=== PATIENT | male | born 1985 | race African-American/Black ===

== ENCOUNTER 2016-11-18 16:04 | Emergency (ER) | payer OTHER ==
[~2016-11-18] VITALS: Ht 165.1 cm; Wt 94.5 kg
[2016-11-18 16:08] VITALS: TEMP 37.6; Ht 165.1 cm; Wt 94.5 kg
[2016-11-18] MEDS ORDERED: ONDANSETRON INJ 2 MG/ML 2 ML VIAL IV STA (16:32)
[2016-11-18] MEDS ORDERED: MoRPHine SULFATE 4 MG/ML 1 ML CARP\\VIAL IV STA (16:32)
[2016-11-18] MEDS ORDERED: KETOROLAC TROMETHAMINE 30 MG/ML VIAL IV STA (16:32)
[2016-11-18] MEDS ORDERED: SODIUM CHLORIDE 0.9% 1000ML 2,000 ML IV STA (16:32)
--- NOTE | 2016-11-18 16:38 | EMERGENCY ROOM VISIT NOTE ---
History Report prepared by Katarinaibsharmila: Pricila Hawkins Under the Supervision of: Dr. Leslee Martinez M.D. First contact with patient: 16:24 Chief Complaint: FLU LIKE SX Stated Complaint: FEVER, COLD AND FLU SYMPTOMS History of Present Illness The patient is a 31 year old male who presents to the Emergency Room with complaints of worsening flu like symptoms that started last night. He complains of a fever, body aches, the chills, some chest discomfort and congestion. He has tried taking Tylenol, but states "it didn't work". He denies any cough or urinary symptoms. He admits to some nausea, but has not vomited or experienced diarrhea. He denies any chronic medical problems. He denies any recent sick contacts. The patient is originally from [facility] and states he is up to date on his vaccinations. Source of History: patient Onset: last night Position: other (global) Timing: worsening Modifying Factors (Relieving): tylenol Associated Symptoms: + chest pain, + chills, + fevers, + nausea, No diarrhea , No urinary symptoms, No vomiting Review of Systems See HPI for pertinent positives & negatives. A total of 10 systems reviewed and were otherwise negative. Past Medical & Surgical Medical Problems: (1) No known health problems Family History No significant family history Social History Smoking Status: Never Smoker Alcohol Use: none Drug Use: none Marital Status: Housing Status: lives with family Occupation Status: employed Current/Historical Medications Scheduled Amoxicillin (Amoxil), 500 MG PO TID Allergies Coded Allergies: No Known Allergies (Unverified , 11/18/16) Physical Exam Vital Signs Date Time Temp Pulse Resp B/P Pulse Ox O2 Delivery O2 Flow Rate FiO2 11/18/16 21:07 107 18 117/67 97 11/18/16 20:06 115 18 109/56 93 Room Air 11/18/16 18:26 119 16 130/67 96 Room Air 11/18/16 17:17 120 11/18/16 16:08 37.6 123 20 139/85 96 Room Air Physical Exam Vital signs reviewed. General: Well-appearing 31 year old male, in no significant distress. HEENT: No scleral icterus, PERRLA, neck supple. Atraumatic. TM's are clear bilaterally. Faint exudates to the bilateral tonsils. Cardiovascular: Regular rate and rhythm, no extra sounds. Pulmonary: Clear to auscultation bilaterally, normal work of breathing. Abdomen: Soft, nontender, nondistended, positive bowel sounds. Musculoskeletal: Atraumatic, no peripheral edema. Neurologic: Patient awake alert and oriented x 3, full strength in all 4 extremities. Cranial nerves 2 through 12 grossly intact. No meningeal signs. Skin: Warm to touch, dry, no rash Medical Decision & Procedures ER Provider Diagnostic Interpretation: This X-Ray was reviewed and interpreted by myself and the radiologist. CHEST ONE VIEW PORTABLE IMPRESSION: Negative chest. Electronically signed by: Eddie Salinas M.D. 11/18/2016 4:55 PM This Ultrasound was reviewed and interpreted by the radiologist and reviewed by myself. Right upper quadrant ultrasound GALLBLADDER-ABD LIMITED IMPRESSION: Normal study Electronically signed by: Eddie Salinas M.D. 11/18/2016 7:[address] scan was reviewed and interpreted by the radiologist and reviewed by myself. ABDOMEN AND PELVIS CT WITH IV CONTRAST IMPRESSION: No significant abnormality identified within the abdomen or pelvis. Electronically signed by: Eddie Salinas M.D. 11/18/2016 8:02 PM Laboratory Results 11/18/16 17:00 Red Blood Count 4.38, Mean Corpuscular Volume 89.7, Mean Corpuscular Hemoglobin 34.0, Mean Corpuscular Hemoglobin Concent 37.9, Mean Platelet Volume 11.4, Neutrophils (%) (Auto) 85.0, Lymphocytes (%) (Auto) 8.2, Monocytes (%) (Auto) 6.4, Eosinophils (%) (Auto) 0.0, Basophils (%) (Auto) 0.1, Neutrophils # (Auto) 17.13, Lymphocytes # (Auto) 1.65, Monocytes # (Auto) 1.28, Eosinophils # (Auto) 0.01, Basophils # (Auto) 0.02 11/18/16 17:00 Test 11/18/16 17:00 11/18/16 17:13 11/18/16 18:39 White Blood Count 20.15 K/uL (4.8-10.8) Red Blood Count 4.38 M/uL (4.7-6.1) Hemoglobin 14.9 g/dL (14.0-18.0) Hematocrit 39.3 % (42-52) Mean Corpuscular Volume 89.7 fL (80-100) Mean Corpuscular Hemoglobin 34.0 pg (25-34) Mean Corpuscular Hemoglobin Concent 37.9 g/dl (32-36) Platelet Count 152 K/uL (130-400) Mean Platelet Volume 11.4 fL (7.4-10.4) Neutrophils (%) (Auto) 85.0 % Lymphocytes (%) (Auto) 8.2 % Monocytes (%) (Auto) 6.4 % Eosinophils (%) (Auto) 0.0 % Basophils (%) (Auto) 0.1 % Neutrophils # (Auto) 17.13 K/uL (1.4-6.5) Lymphocytes # (Auto) 1.65 K/uL (1.2-3.4) Monocytes # (Auto) 1.28 K/uL (0.11-0.59) Eosinophils # (Auto) 0.01 K/uL (0-0.5) Basophils # (Auto) 0.02 K/uL (0-0.2) RDW Standard Deviation 39.2 fL (36.4-46.3) RDW Coefficient of Variation 12.1 % (11.5-14.5) Immature Granulocyte % (Auto) 0.3 % Immature Granulocyte # (Auto) 0.06 K/uL (0.00-0.02) Anion Gap 11.0 mmol/L (3-11) Est Creatinine Clear Calc Drug Dose 101.9 ml/min Estimated GFR () 102.4 Estimated GFR (Non- 88.4 BUN/Creatinine Ratio 13.2 (10-20) Calcium Level 8.5 mg/dl (8.5-10.1) Magnesium Level 1.8 mg/dl (1.8-2.4) Total Bilirubin 4.1 mg/dl (0.2-1) Direct Bilirubin 0.3 mg/dl (0-0.2) Aspartate Amino Transf (AST/SGOT) 17 U/L (15-37) Alanine Aminotransferase (ALT/SGPT) 21 U/L (12-78) Alkaline Phosphatase 63 U/L (45-117) Total Protein 7.5 gm/dl (6.4-8.2) Albumin 3.7 gm/dl (3.4-5.0) Amylase Level 42 U/L (25-115) Lipase 73 U/L (73-393) Influenza Type A (RT-PCR) Neg for Influ A (NEG) Influenza Type B (RT-PCR) Neg for Influ B (NEG) Bedside Lactic Acid Venous 0.67 mmol/L (0.90-1.70) Laboratory results per my review. Medications Administered Medications (Trade) Dose Ordered Sig/Danny Route Start Time Stop Time Status Last Admin Dose Admin Sodium Chloride (Nss 1000ml) 2,000 ml @ 999 mls/hr Q2H1M STAT IV 11/18/16 16:32 11/18/16 18:32 DC 11/18/16 17:06 999 MLS/HR Ketorolac Tromethamine (Toradol Inj) 30 mg NOW STAT IV 11/18/16 16:32 11/18/16 16:35 DC 11/18/16 17:06 30 MG Morphine Sulfate (MoRPHine SULFATE INJ) 4 mg NOW STAT IV 11/18/16 16:32 11/18/16 16:35 DC 11/18/16 17:07 4 MG Ondansetron HCl (Zofran Inj) 4 mg NOW STAT IV 11/18/16 16:32 11/18/16 16:35 DC 11/18/16 17:06 4 MG Ceftriaxone Sodium (Rocephin Inj) 1 gm NOW STAT IV 11/18/16 18:05 11/18/16 18:09 DC 11/18/16 18:33 1 GM ED Course 1631: Past medical records reviewed. The patient was evaluated in room B11. A complete history and physical examination was performed. 1632: Zofran 4 mg IV, Morphine Sulfate 4 mg IV, Toradol 30 mg IV, NSS 2000 ml @ 999 mls/hr IV. 1805: Rocephin 1 gm IV. 1810: I reevaluated the patient. He was asleep but states his abdomen is a little tender to palpation. 2030: I reevaluated the patient. He is feeling better. I discussed his results and discharge instructions and he verbalized complete understanding and agreement. Medical Decision Differential diagnosis: Influenza, other viral illness, pneumonia, urinary tract infection, metabolic abnormality, medication effect, cellulitis, meningitis, intra-abdominal source and strep pharyngitis. This patient was evaluated and appeared to be in no significant distress. He is found to be febrile and tachycardic. The patient was medicated with IV Toradol, IV morphine and IV Zofran. The patient was hydrated with normal saline solution. Patient is complaining of a sore throat and there are faint exudate on the posterior oropharynx. Strep swab was obtained and is negative. Blood swab is negative. Patient is found have a leukocytosis of 20,000 and an elevated bilirubin of 4. Ultrasound of right upper quadrant was performed and is negative. Subsequent CT scan of the abdomen and pelvis was performed and is also unrevealing. Blood cultures were obtained and a lactate is normal. Patient was given IV ceftriaxone 1 g. Given his complaints of fever and sore throat, and is possibly he is suffering from a bacterial pharyngitis. Patient was placed on amoxicillin 500 mg 3 times daily for 7 days. He'll follow-up with his physician for reevaluation return to the ED for worsening of symptoms or any medical concerns. Impression Primary Impression: Fever Additional Impressions: Leukocytosis Pharyngitis, acute Scribe Attestation The scribe's documentation has been prepared under my direction and personally reviewed by me in its entirety. I confirm that the note above accurately reflects all work, treatment, procedures, and medical decision making performed by me. Departure Information Dispostion Home / Self-Care Prescriptions Amoxicillin (AMOXIL) 500 Mg Cap 500 MG PO TID, #21 CAP Prov: Leslee Martinez M.D. 11/18/16 Referrals No Doctor, Assigned (PCP) Patient Instructions My [facility] Additional Instructions Diagnosis: Fever, pharyngitis Amoxicillin 500 mg three times daily for 7 days. Drink plenty of fluids. Tylenol 650 mg every 6 hours as needed for pain, fever. Ibuprofen 600 mg every 6 hours as needed for pain, fever. Follow up with your doctor this week for reevaluation. Return to the ED for worsening of symptoms or any medical concerns. Problem Qualifiers Primary Impression: Fever Encounter type: initial encounter Additional Impressions: Leukocytosis Leukocytosis type: unspecified Qualified Codes: D72.829 - Elevated white blood cell count, unspecified Pharyngitis, acute Pharyngitis/tonsillitis etiology: unspecified etiology Qualified Codes: J02.9 - Acute pharyngitis, unspecified
--- NOTE | 2016-11-18 16:57 | DIAGNOSTIC IMAGING REPORT ---
CHEST ONE VIEW PORTABLE CLINICAL HISTORY: cough, fever COMPARISON STUDY: No previous studies for comparison. FINDINGS: The bones soft tissues and hemidiaphragms are normal. The cardiomediastinal silhouette is normal. The lungs are clear. The pulmonary vasculature is normal. IMPRESSION: Negative chest. Electronically signed by: Eddie Salinas M.D. 11/18/2016 4:55 PM Dictated Date/Time: 11/18/2016 4:55 PM
[2016-11-18 17:09] LABS: BASO % 0.1 %; BASO ABS # 0.02 K/uL (0-0.2); COMPLETE YES; HEMATOCRIT 39.3 % (42-52); IG% 0.3 %; LYMPH % 8.2 %; LYMPH ABS # 1.65 K/uL (1.2-3.4); MEAN CELL VOLUME 89.7 fL (80-100); MEAN CORPUSCULAR HGB CONC 37.9 g/dl (32-36); MEAN PLATELET VOLUME 11.4 fL (7.4-10.4); MONO % 6.4 %; PLATELET COUNT 152 K/uL (130-400); RED BLOOD COUNT 4.38 M/uL (4.7-6.1); WHITE BLOOD COUNT 20.15 K/uL (4.8-10.8)
[2016-11-18 17:34] LABS: BUN/CREATININE RATIO 13.2 (10-20); CALCIUM 8.5 mg/dl (8.5-10.1); CREATININE 1.1 mg/dl (0.60-1.40); MAGNESIUM 1.8 mg/dl (1.8-2.4); POTASSIUM 3.4 mmol/L (3.5-5.1)
[2016-11-18] MEDS ORDERED: CEFTRIAXONE SOD INJ 1 GM ADDVIAL IV STA (18:05)
--- NOTE | 2016-11-18 19:05 | DIAGNOSTIC IMAGING REPORT ---
Right upper quadrant ultrasound GALLBLADDER-ABD LIMITED CLINICAL HISTORY: RUQ tender, WBC 20, fever elevated bili pain TECHNIQUE: Ultrasound COMPARISON STUDY: None FINDINGS: Normal gallbladder. Common bile duct 3 mm. Liver pancreas and right kidney unremarkable. IMPRESSION: Normal study Electronically signed by: Eddie Salinas M.D. 11/18/2016 7:03 PM Dictated Date/Time: 11/18/2016 7:02 PM
[2016-11-18 19:21] LABS: INFLUENZA A PCR Neg for Influ A (NEG); INFLUENZA B PCR Neg for Influ B (NEG)
[2016-11-18] MEDS ORDERED: OPTIRAY 320 IV PRN (19:45)
--- NOTE | 2016-11-18 20:03 | DIAGNOSTIC IMAGING REPORT ---
ABDOMEN AND PELVIS CT WITH IV CONTRAST CT DOSE: 477.87 mGy.cm HISTORY: Pain abd pain, fever, elev. WBC/bilirubin TECHNIQUE: Multiaxial CT images of the abdomen and pelvis were performed following the use of intravenous contrast. COMPARISON STUDY: None. FINDINGS: The lung bases are clear. The liver, spleen, gallbladder, pancreas, kidneys, and adrenal glands are within normal limits. No bowel wall thickening or obstruction. The pelvic organs are unremarkable. No suspicious lytic or blastic osseous lesions. IMPRESSION: No significant abnormality identified within the abdomen or pelvis. Electronically signed by: Eddie Salinas M.D. 11/18/2016 8:02 PM Dictated Date/Time: 11/18/2016 8:00 PM
[2016-11-18] MEDS ORDERED: AMOX500C3 PO (20:46)
[2016-11-18 21:07] VITALS: BP 117/67; PULSE 107; O2SAT 97
== END 2016-11-18 21:07 | disposition home or self-care (01) ==
LOC: C.EDB 16:06
DX: R50.9 Fever, unspecified (principal); D72.829 Elevated white blood cell count, unspecified; J02.9 Acute pharyngitis, unspecified

== ENCOUNTER 2017-03-17 21:52 | Emergency (ER) | payer SELFPAY ==
[~2017-03-17] VITALS: Ht 165.1 cm; Wt 93.0 kg
[2017-03-17 21:59] VITALS: TEMP 36.6; Ht 165.1 cm; Wt 93.0 kg
[2017-03-17] MEDS ORDERED: HYDROmorphone INJ 1 MG/ML SYR IV STA ×2 (23:03→23:59)
[2017-03-17] MEDS ORDERED: ONDANSETRON INJ 2 MG/ML 2 ML VIAL IV STA (23:03)
[2017-03-17 23:38] LABS: BASO % 0.2 %; BASO ABS # 0.02 K/uL (0-0.2); COMPLETE YES; HEMATOCRIT 40.8 % (42-52); IG% 0.2 %; LYMPH ABS # 3.66 K/uL (1.2-3.4); MEAN CELL VOLUME 88.7 fL (80-100); MEAN CORPUSCULAR HEMOGLOBIN 32.6 pg (25-34); MEAN CORPUSCULAR HGB CONC 36.8 g/dl (32-36); MEAN PLATELET VOLUME 10.2 fL (7.4-10.4); MONO % 5.3 %; NEUT % 51.3 %; PLATELET COUNT 242 K/uL (130-400); WHITE BLOOD COUNT 8.71 K/uL (4.8-10.8)
[2017-03-17 23:45] LABS: PROTHROMBIN TIME (PATIENT) 10.7 SECONDS (9.0-12.0)
--- NOTE | 2017-03-17 23:52 | DIAGNOSTIC IMAGING REPORT ---
SINGLE VIEW CHEST CLINICAL HISTORY: Back pain. FINDINGS: An AP, portable, upright chest radiograph is compared to study dated 11/18/16. The examination is mildly degraded by portable technique and apical lordotic positioning. The cardiomediastinal silhouette is unremarkable. The lungs and pleural spaces are clear. No pneumothorax is seen. The bony thorax is grossly intact. IMPRESSION: No active disease in the chest. Electronically signed by: Myron Cordon M.D. 03/17/2017 11:51 PM Dictated Date/Time: 03/17/2017 11:50 PM
[2017-03-17 23:55] LABS: BUN/CREATININE RATIO 13.6 (10-20); CALCIUM 8.9 mg/dl (8.5-10.1); CREATININE 1.1 mg/dl (0.60-1.40)
--- NOTE | 2017-03-18 00:37 | DIAGNOSTIC IMAGING REPORT ---
LUMBAR SPINE 5 VIEWS CLINICAL HISTORY: Low back pain. FINDINGS: 5 views of the lumbar spine are correlated with abdominal CT dated 11/18/16. The skeletal structures are well mineralized. There is no radiographic evidence of fracture or malalignment. Vertebral body height and alignment are maintained. The transverse and spinous processes are intact. There is no evidence of spondylolysis. The intervertebral disc spaces are well-maintained. The visualized bony pelvis appears intact. There is a nonobstructed abdominal bowel gas pattern. IMPRESSION: Unremarkable radiographic evaluation of the lumbosacral spine. Electronically signed by: Myron Cordon M.D. 03/18/2017 12:36 AM Dictated Date/Time: 03/18/2017 12:35 AM
--- NOTE | 2017-03-18 00:38 | DIAGNOSTIC IMAGING REPORT ---
THORACIC SPINE 3 VIEWS CLINICAL HISTORY: Thoracic back pain. FINDINGS: AP, lateral, and swimmer's views of the thoracic spine are obtained. No prior studies are available for comparison at the time of dictation. The skeletal structures are well mineralized. Vertebral body height and alignment are maintained throughout the thoracic spine. There is no radiographic evidence of fracture or malalignment. The transverse processes and pedicles are grossly intact as seen on the frontal view. The disc spaces are preserved. The lung parenchyma is clear as imaged. IMPRESSION: Unremarkable radiographic assessment of the thoracic spine. Electronically signed by: Myron Cordon M.D. 03/18/2017 12:37 AM Dictated Date/Time: 03/18/2017 12:36 AM
[2017-03-18] MEDS ORDERED: OXYC1TAB3 PO (00:44)
[2017-03-18 00:57] VITALS: BP 149/85; PULSE 98; O2SAT 95
--- NOTE | 2017-03-18 01:46 | EMERGENCY ROOM VISIT NOTE ---
History Report prepared by Dwayne: Anu Collazo Under the Supervision of: Dr. Alireza Huizar M.D. First contact with patient: 22:53 Chief Complaint: BACK PAIN Stated Complaint: BACK PAIN History of Present Illness The patient is a 32 year old male who presents to the Emergency Room with complaints of persistent back pain starting 1 hour ago. The pain is in his entire back. He states that it feels like someone is pulling his spine from inside. He states that his pain is excruciating. The pain started after he drove home. It caused him to drop to his knees but he drove himself to the ED. The pain worsens with slight movement. He denies any chest pain, abdominal pain , fever, leg pain, arm pain, numbness, weakness, or urinary symptoms. He denies incontinence. He denies any fall or injury. He does do a lot of heavy lifting but denies any recent injury or event. He denies any medical problems. Source of History: patient Onset: 1 hour ago Position: back Symptom Intensity: excruciating Quality: other (pain) Timing: other (persistent) Modifying Factors (Worsening): movement Associated Symptoms: No fevers, No chest pain, No abdominal pain, No urinary symptoms, No weakness, No numbness Note: Pt denies leg pain, arm pain. Review of Systems See HPI for pertinent positives & negatives. A total of 10 systems reviewed and were otherwise negative. Past Medical & Surgical Medical Problems: (1) No known health problems Family History No significant family history Social History Smoking Status: Never Smoker Alcohol Use: none Drug Use: none Marital Status: Housing Status: lives with family Occupation Status: employed Current/Historical Medications Scheduled PRN Oxycodone Ir (Roxicodone Ir), 5 MG PO Q4H PRN for Pain Allergies Coded Allergies: No Known Allergies (Unverified , 03/17/17) Physical Exam Vital Signs Date Time Temp Pulse Resp B/P (MAP) Pulse Ox O2 Delivery O2 Flow Rate FiO2 03/18/17 00:57 98 16 149/85 95 Room Air 03/17/17 23:49 81 16 156/104 91 Room Air 03/17/17 21:59 36.6 97 18 141/93 96 Room Air Physical Exam Constitutional: Vital signs reviewed. Patient appears very uncomfortable, unable to move without severe pain in his back. Eyes: Pupils are equal round reactive to light. Conjunctiva are noninjected. ENT: Pharynx is clear without erythema or exudate. Mucous membranes are moist. Neck supple without meningeal signs. Respiratory: Clear to auscultation bilaterally. Breath sounds are equal bilaterally. Cardiovascular: Regular rate and rhythm. No rubs or gallops. GI: Soft, nondistended and nontender. Bowel sounds are present. No pulsatile masses. Musculoskeletal: No peripheral edema. No midline tenderness to the thoracic, lumbosacral, or cervical spine. Integumentary: No cyanosis. Neurological: The patient is awake and alert. No focal deficits. Motor and sensation intact throughout all extremities. Psychiatric: Very anxious. Medical Decision & Procedures ER Provider Diagnostic Interpretation: X-ray results as stated below per interpretation by me and the radiologist: LUMBAR SPINE 5 VIEWS CLINICAL HISTORY: Low back pain. FINDINGS: 5 views of the lumbar spine are correlated with abdominal CT dated 11/18/16. The skeletal structures are well mineralized. There is no radiographic evidence of fracture or malalignment. Vertebral body height and alignment are maintained. The transverse and spinous processes are intact. There is no evidence of spondylolysis. The intervertebral disc spaces are well-maintained. The visualized bony pelvis appears intact. There is a nonobstructed abdominal bowel gas pattern. IMPRESSION: Unremarkable radiographic evaluation of the lumbosacral spine. Electronically signed by: Myron Cordon M.D. 03/18/2017 12:36 AM Dictated Date/Time: 03/18/2017 12:35 AM THORACIC SPINE 3 VIEWS CLINICAL HISTORY: Thoracic back pain. FINDINGS: AP, lateral, and swimmer's views of the thoracic spine are obtained. No prior studies are available for comparison at the time of dictation. The skeletal structures are well mineralized. Vertebral body height and alignment are maintained throughout the thoracic spine. There is no radiographic evidence of fracture or malalignment. The transverse processes and pedicles are grossly intact as seen on the frontal view. The disc spaces are preserved. The lung parenchyma is clear as imaged. IMPRESSION: Unremarkable radiographic assessment of the thoracic spine. Electronically signed by: Myron Cordon M.D. 03/18/2017 12:37 AM Dictated Date/Time: 03/18/2017 12:36 AM SINGLE VIEW CHEST CLINICAL HISTORY: Back pain. FINDINGS: An AP, portable, upright chest radiograph is compared to study dated 11/18/16. The examination is mildly degraded by portable technique and apical lordotic positioning. The cardiomediastinal silhouette is unremarkable. The lungs and pleural spaces are clear. No pneumothorax is seen. The bony thorax is grossly intact. IMPRESSION: No active disease in the chest. Electronically signed by: Myron Cordon M.D. 03/17/2017 11:51 PM Dictated Date/Time: 03/17/2017 11:50 PM Laboratory Results 03/17/17 23:27 Red Blood Count 4.60, Mean Corpuscular Volume 88.7, Mean Corpuscular Hemoglobin 32.6, Mean Corpuscular Hemoglobin Concent 36.8, Mean Platelet Volume 10.2, Neutrophils (%) (Auto) 51.3, Lymphocytes (%) (Auto) 42.0, Monocytes (%) (Auto) 5.3, Eosinophils (%) (Auto) 1.0, Basophils (%) (Auto) 0.2, Neutrophils # (Auto) 4.46, Lymphocytes # (Auto) 3.66, Monocytes # (Auto) 0.46, Eosinophils # (Auto) 0.09, Basophils # (Auto) 0.02 03/17/17 23:27 Test 03/17/17 23:27 White Blood Count 8.71 K/uL (4.8-10.8) Red Blood Count 4.60 M/uL (4.7-6.1) Hemoglobin 15.0 g/dL (14.0-18.0) Hematocrit 40.8 % (42-52) Mean Corpuscular Volume 88.7 fL (80-100) Mean Corpuscular Hemoglobin 32.6 pg (25-34) Mean Corpuscular Hemoglobin Concent 36.8 g/dl (32-36) Platelet Count 242 K/uL (130-400) Mean Platelet Volume 10.2 fL (7.4-10.4) Neutrophils (%) (Auto) 51.3 % Lymphocytes (%) (Auto) 42.0 % Monocytes (%) (Auto) 5.3 % Eosinophils (%) (Auto) 1.0 % Basophils (%) (Auto) 0.2 % Neutrophils # (Auto) 4.46 K/uL (1.4-6.5) Lymphocytes # (Auto) 3.66 K/uL (1.2-3.4) Monocytes # (Auto) 0.46 K/uL (0.11-0.59) Eosinophils # (Auto) 0.09 K/uL (0-0.5) Basophils # (Auto) 0.02 K/uL (0-0.2) RDW Standard Deviation 38.9 fL (36.4-46.3) RDW Coefficient of Variation 12.2 % (11.5-14.5) Immature Granulocyte % (Auto) 0.2 % Immature Granulocyte # (Auto) 0.02 K/uL (0.00-0.02) Nucleated RBC Absolute Count (auto) 0.05 K/uL (0-0) Nucleated Red Blood Cells % 0.6 % Prothrombin Time 10.7 SECONDS (9.0-12.0) Prothromb Time International Ratio 1.0 (0.9-1.1) Activated Partial Thromboplast Time 26.4 SECONDS (21.0-31.0) Partial Thromboplastin Ratio 1.0 Anion Gap 5.0 mmol/L (3-11) Est Creatinine Clear Calc Drug Dose 100.1 ml/min Estimated GFR () 101.7 Estimated GFR (Non- 87.7 BUN/Creatinine Ratio 13.6 (10-20) Calcium Level 8.9 mg/dl (8.5-10.1) Laboratory results as reviewed by me. Medications Administered Medications (Trade) Dose Ordered Sig/Danny Route Start Time Stop Time Status Last Admin Dose Admin Hydromorphone HCl (Dilaudid Inj) 0.5 mg NOW STAT IV 03/17/17 23:03 03/17/17 23:06 DC 03/17/17 23:32 0.5 MG Ondansetron HCl (Zofran Inj) 4 mg NOW STAT IV 03/17/17 23:03 03/17/17 23:06 DC 03/17/17 23:32 4 MG Hydromorphone HCl (Dilaudid Inj) 0.5 mg NOW STAT IV 03/17/17 23:59 03/18/17 00:01 DC 03/18/17 00:08 0.5 MG ED Course 2257: The patient was evaluated in room A12A. A complete history and physical exam was performed. 2303: Zofran Inj 4 mg IV, Dilaudid Inj 0.5 mg IV. 2315: Limited bedside ultrasound visualized the aorta without signs of aneurysms. Limited study due to bowel gas. 2358: I reevaluated the patient. The pain is better now. It seems to be more in his lower back. He is still having trouble moving. 2359: Dilaudid Inj 0.5 mg IV. 0040: I reevaluated the patient. He feels better. I discussed the test results with the patient and his . I carefully reviewed return instructions with him and his and the need for follow up and precautions regarding oxycodone. They verbalized understanding and agreement. He will be discharged home. Medical Decision This is a 32-year-old male who presents with back pain. Differential diagnosis includes pathologic fracture, compression fracture, intervertebral disc disease , strain, aortic dissection. I did perform a limited focused review of portions of the patient's old chart on the electronic medical record. The patient has had no recent pertinent visits to this hospital. Medication Reconciliation: I attest that I have personally reviewed the patient' s current medication list. Blood Pressure Screening: Patient was found to have an elevated blood pressure and was referred to their primary doctor for recheck and further treatment. I did evaluate the patient as noted above. He appears to be in significant pain. Any movement worsens his pain. I did do a limited bedside ultrasound of his abdomen which did not show any signs of AAA. His symptoms do not seem consistent with an aortic dissection. As mentioned it is worsened with any type of movement. He denies any chest or abdominal pain. He has no prior history of hypertension. IV access was established. I did treat the patient with Dilaudid and Zofran IV. I did order and personally review the patient's chest x-ray as described above. There is no evidence of widened mediastinum. He has normal pulses throughout all extremities. I did order and review the patient's blood work as noted in the electronic medical record. I did an x-ray of the thoracic or lumbosacral spine.. I did review the images myself as well as the radiology report as described above. There is no evidence of acute fracture or dislocation. I did reassess the patient. He is feeling better. He is able to move with less difficulty. He does feel well enough to go home. I did discuss the test results with the patient and his . He states the pain seems to be or localized in his lower back now. I did review the test results as well as return instructions with the patient and his . He was discharged in good condition with a prescription for oxycodone. He was told to return for any worsening symptoms. [place] Drug Monitoring Program Search Results: patient reviewed within database Drug Monitoring Findings: No matching patients were found. Impression Primary Impression: Acute back pain Scribe Attestation The scribe's documentation has been prepared under my direct and personally reviewed by me in its entirety. I confirm that the note above accurately reflects all work, treatment, procedures, and medical decision making performed by me. Departure Information Dispostion Home / Self-Care Prescriptions Oxycodone Ir (Roxicodone Ir) 5 Mg Tab 5 MG PO Q4H Y for Pain, #20 TAB Prov: Alireza Huizar M.D. 03/18/17 Referrals [facility] Forms HOME CARE DOCUMENTATION FORM, IMPORTANT VISIT INFORMATION Patient Instructions Back Pain - [facility], [facility] Additional Instructions You have been examined and treated today on an emergency basis only. This is not a substitute for, or an effort to provide, complete comprehensive medical care. It is impossible to recognize and treat all injuries or illnesses in a single emergency department visit. It is therefore important that you follow up closely with your physician. Call as soon as possible for an appointment. Return for worsening symptoms or if you develop fever, vomiting, abdominal pain , chest pain, loss of control of your bowel or bladder, numbness or weakness to your legs, numbness to your private area, difficulty urinating, or any other concerning symptoms. Problem Qualifiers Primary Impression: Acute back pain Back pain location: back pain in unspecified location Back pain laterality: midline Qualified Codes: M54.9 - Dorsalgia, unspecified
== END 2017-03-18 01:00 | disposition home or self-care (01) ==
LOC: C.EDB 21:53 → C.EDA 03-18 01:00
DX: M54.9 Dorsalgia, unspecified (principal)

== ENCOUNTER 2017-11-14 18:19 | Emergency (ER) | payer SELFPAY ==
[~2017-11-14] VITALS: Ht 170.2 cm; Wt 101.2 kg
[2017-11-14 18:57] VITALS: TEMP 36.8; Ht 170.2 cm; Wt 101.2 kg
[2017-11-14] MEDS ORDERED: NEOM1SUS21 OP (19:13)
[2017-11-14 19:17] VITALS: BP 126/70; PULSE 67; O2SAT 98
--- NOTE | 2017-11-16 14:26 | EMERGENCY ROOM VISIT NOTE ---
ED Visit Note First contact with patient: 19:01 Chief Complaint: Left ear pain. History of Present Illness: Mr. Ben Bergman is a 32-year-old black male who ambulates into the ED complaining of left ear pain. Patient reports he has been having left ear pain ongoing for the last 3 weeks. He reports he has an underlying achy sensation in his ear and then intermittently he gets a severe stabbing like pain in his ear. His constant pain is rated 5/10. His stabbing pain is rated 10/10. The pain is nonradiating. He has not identified any aggravating or alleviating factors related to the pain. He has not taken any medication for pain prior to arrival at the hospital. Associated with his pain he reports his hearing is slightly muffled. He denies fevers, chills, sweats, skin eruptions, skin color changes, headaches , dizziness, lightheadedness, ear drainage, tinnitus, sore throats, painful swallowing, voice changes, neck pain/stiffness, cough, shortness of breath. Additionally patient does report he cleans his ears with Q-tips every day after showering. Review of Systems: As noted above in history of present illness. 8 body systems were reviewed and found to be negative as noted above. Past Medical History: Patient denies. Current Medications: Patient denies. Allergies to Medications: Patient denies. Social History: Patient is not employed; he feels safe in his home environment; he denies tobacco and alcohol use. Physical Examination: Vital Signs: Date Time Temp Pulse Resp B/P (MAP) Pulse Ox O2 Delivery O2 Flow Rate FiO2 11/14/17 19:17 67 16 126/70 98 11/14/17 18:57 36.8 91 18 146/109 98 Room Air 158/104 GENERAL: 32-year-old male in mild distress due to pain, nontoxic-appearing, afebrile and hemodynamically stable. NEUROLOGICAL: Awake, alert and oriented to person, place and time. Answering questions appropriately and following commands. Normal gait. Good hand eye coordination. No focal motor sensory deficits. SKIN: Warm, dry and pink. No soft tissue eruptions or trauma noted. HEENT: Atraumatic and normocephalic. No erythema or tenderness over the frontal or maxillary sinuses. Mild tenderness of the left external ear with distraction. Positive tragal tenderness of the left external ear. Left auditory canal is moderate clear family is and mildly edematous. The tympanic membrane was partially obstructed but was seen was not erythematous or bulging. I did not a appreciate any fluid behind the membrane. No tenderness to the external ear. The right ear canal is mildly erythematous and mildly edematous. Once again the tympanic membrane was visualized and was not bulging or erythematous and there was no fluid behind the drum. No preauricular or postauricular lymphadenopathy. No tenderness or erythema over the mastoid processes. Sclera white and conjunctiva pink. No drainage from naris without drainage. Oral cavity moist and pink. Uvula is midline and no abscesses were seen. Pharynx is nonerythematous or edematous. Speech normal. No cervical lymphadenopathy. ED Course: Patient is assessed as noted above. Patient's medication list was reviewed. Patient was offered pain medication and refused. Patient was educated about today's findings and instructed on his treatment plan ; he verbalized understanding and agreement with this plan. Clinical Impression: Bilateral acute otitis externa. Patient's blood pressure: Elevated. Blood pressure disposition: Follow-up with PCP Disposition: Patient discharged home in stable condition; prior to departure he was reassessed and subjectively reported he was feeling the same. Plan: Patient was encouraged to alternate ibuprofen and acetaminophen as needed for pain per Patient was prescribed Cortisporin otic suspension and instructed to use 5 drops in both ears 4 times a day for 7 days. Patient was encouraged not to allow her put anything in his ear canals until resolution of pain. Patient was encouraged to follow-up with his primary care provider for recheck in 4-7 days for his otitis externa and also his blood pressure. Patient was encouraged return ED for worsening/uncontrolled pain, external ear redness/swelling, pus or bloody drainage from the ears, worsening hearing changes or any new/concerning symptoms.
== END 2017-11-14 19:18 | disposition home or self-care (01) ==
LOC: C.EDB 18:19 → C.EDD 19:18
DX: H60.503 Unspecified acute noninfective otitis externa, bilateral (principal)

== ENCOUNTER 2018-01-10 13:51 | Emergency (ER) | payer SELFPAY ==
[~2018-01-10] VITALS: Ht 170.2 cm; Wt 100.0 kg
[~2018-01-10 13:51] MED LIST: NEOM1SUS21 OP
[2018-01-10 13:59] VITALS: TEMP 36.7; Ht 170.2 cm; Wt 100.0 kg
[2018-01-10] MEDS ORDERED: PSEUDOEPHEDRINE HCL 30 MG TAB PO STA (14:11)
[2018-01-10] MEDS ORDERED: SODIUM CHLORIDE 0.9% 1000ML 1,000 ML IV STA (14:11)
[2018-01-10] MEDS ORDERED: ACETAMINOPHEN 500 MG TAB PO STA (14:11)
[2018-01-10] MEDS ORDERED: KETOROLAC TROMETHAMINE 30 MG/ML VIAL IV STA (14:11)
--- NOTE | 2018-01-10 14:13 | EMERGENCY ROOM VISIT NOTE ---
History Report prepared by Dwayne: Jean Carlos Bhardwaj Under the Supervision of: Dr. Myron John M.D. First contact with patient: 14:05 Chief Complaint: FLU LIKE SX Stated Complaint: COUGH, COLD AND FLU, FEVER, HEADACHE History of Present Illness The patient is a 32 year old male who presents to the Emergency Room with complaints of worsening congestion, and a persistent cough that he has been experiencing for the past 2 months. The patient complains of several cold-like symptoms including congestion in his head and chest, runny nose, sore throat, and cough. He notes that these symptoms have been "worsening everyday." The patient states that his cough causes a "burning" sensation in his chest, and a headache in both sides of his head. Last night he felt feverish and weak as well. He has no history of sinus infections, and did get the influenza vaccination this year. Source of History: patient Onset: 2 months Position: chest Quality: burning (burning chest pain with cough), other (Cough/Congestion) Timing: worsening Associated Symptoms: + fevers, + headache, + sorethroat, + chest pain ( burning), + weakness Review of Systems See HPI for pertinent positives & negatives. A total of 10 systems reviewed and were otherwise negative. Past Medical & Surgical Medical Problems: (1) No known health problems Family History No significant family history Social History Smoking Status: Never Smoker Alcohol Use: none Drug Use: none Marital Status: Housing Status: lives with family Occupation Status: employed Current/Historical Medications No Active Prescriptions or Reported Meds Allergies Coded Allergies: No Known Allergies (Unverified , 01/10/18) Physical Exam Vital Signs Date Time Temp Pulse Resp B/P (MAP) Pulse Ox O2 Delivery O2 Flow Rate FiO2 01/10/18 17:06 97 17 138/83 99 Room Air 01/10/18 15:53 86 17 146/104 97 Room Air 01/10/18 13:59 36.7 101 20 156/112 98 Physical Exam GENERAL: Patient is in no acute distress. HEENT: No acute trauma, normocephalic atraumatic, mucous membranes moist, Moderate nasal congestion present, no scleral icterus. There is no throat erythema or exudate. TMs are clear bilaterally. NECK: No stridor, no adenopathy, no meningismus, trachea is midline. LUNGS: Clear to auscultation bilaterally, no wheeze, no rhonchi, breath sounds equal. HEART: Patient is midly tachycardic. Regular rhythm, no murmurs. ABDOMEN: Soft, nontender, bowel sounds positive, no hernias, no peritonitis. EXTREMITIES: No cyanosis or edema, full range of motion of all the joints without pain or difficulty, no signs for acute trauma. NEUROLOGIC: Oriented x 3, no acute motor or sensory deficits, no focal weakness. SKIN: No rash, no jaundice, no diaphoresis. Medical Decision & Procedures ER Provider Diagnostic Interpretation: Chest x-ray does not show pneumonia, pneumothorax or CHF. There was no free air. Brain CT does not show evidence for acute bleed or mass-effect. A pansinusitis was seen. Laboratory Results 01/10/18 14:25 Red Blood Count 5.14, Mean Corpuscular Volume 88.7, Mean Corpuscular Hemoglobin 33.3, Mean Corpuscular Hemoglobin Concent 37.5, Neutrophils (%) (Auto) 73.3, Lymphocytes (%) (Auto) 16.9, Monocytes (%) (Auto) 8.6, Eosinophils (%) (Auto) 1.0, Basophils (%) (Auto) 0.1, Neutrophils # (Auto) 10.01, Lymphocytes # (Auto) 2.31, Monocytes # (Auto) 1.17, Eosinophils # (Auto) 0.14, Basophils # (Auto) 0.02 01/10/18 14:25 Test 01/10/18 14:25 White Blood Count 13.66 K/uL (4.8-10.8) Red Blood Count 5.14 M/uL (4.7-6.1) Hemoglobin 17.1 g/dL (14.0-18.0) Hematocrit 45.6 % (42-52) Mean Corpuscular Volume 88.7 fL (80-100) Mean Corpuscular Hemoglobin 33.3 pg (25-34) Mean Corpuscular Hemoglobin Concent 37.5 g/dl (32-36) Platelet Count 219 K/uL (130-400) Neutrophils (%) (Auto) 73.3 % Lymphocytes (%) (Auto) 16.9 % Monocytes (%) (Auto) 8.6 % Eosinophils (%) (Auto) 1.0 % Basophils (%) (Auto) 0.1 % Neutrophils # (Auto) 10.01 K/uL (1.4-6.5) Lymphocytes # (Auto) 2.31 K/uL (1.2-3.4) Monocytes # (Auto) 1.17 K/uL (0.11-0.59) Eosinophils # (Auto) 0.14 K/uL (0-0.5) Basophils # (Auto) 0.02 K/uL (0-0.2) Immature Granulocyte % (Auto) 0.1 % Immature Granulocyte # (Auto) 0.01 K/uL (0.00-0.02) Polychromasia 1+ Stomatocytes 1+ Anion Gap 5.0 mmol/L (3-11) Est Creatinine Clear Calc Drug Dose 118.4 ml/min Estimated GFR () 114.1 Estimated GFR (Non- 98.5 BUN/Creatinine Ratio 11.0 (10-20) Calcium Level 9.1 mg/dl (8.5-10.1) Total Bilirubin 2.2 mg/dl (0.2-1) Aspartate Amino Transf (AST/SGOT) 19 U/L (15-37) Alanine Aminotransferase (ALT/SGPT) 28 U/L (12-78) Alkaline Phosphatase 86 U/L (45-117) Total Protein 7.7 gm/dl (6.4-8.2) Albumin 3.7 gm/dl (3.4-5.0) Globulin 4.0 gm/dl (2.5-4.0) Albumin/Globulin Ratio 0.9 (0.9-2) Influenza Type A Antigen Neg for Influ A (NEG) Influenza Type B Antigen Neg for Influ B (NEG) Laboratory results reviewed by me. Medications Administered Medications (Trade) Dose Ordered Sig/Danny Route Start Time Stop Time Status Last Admin Dose Admin Ketorolac Tromethamine (Toradol Inj) 30 mg NOW STAT IV 01/10/18 14:11 01/10/18 14:14 DC 01/10/18 14:31 30 MG Acetaminophen (Tylenol Tab) 1,000 mg NOW STAT PO 01/10/18 14:11 01/10/18 14:14 DC 01/10/18 14:32 1,000 MG Sodium Chloride 1,000 ml @ 999 mls/hr Q1H1M STAT IV 01/10/18 14:11 3/28/18 15:11 DC 01/10/18 14:30 999 MLS/HR Pseudoephedrine HCl (Sudafed Tab) 60 mg NOW STAT PO 01/10/18 14:11 01/10/18 14:14 DC 01/10/18 14:31 60 MG Ceftriaxone Sodium (Rocephin Inj) 1 gm NOW STAT IV 01/10/18 15:07 01/10/18 15:09 DC 01/10/18 15:50 1 GM Amoxicillin/ Clavulanate Potassium (Augmentin Tab) 875 mg ONE ONCE PO 01/10/18 15:15 01/10/18 15:16 DC 01/10/18 15:51 875 MG Prednisone (PredniSONE TAB) 60 mg NOW STAT PO 01/10/18 15:07 01/10/18 15:09 DC 01/10/18 15:50 60 MG ED Course 1406: The patient was evaluated in room C3. A complete history and physical exam was performed. 1411: Ordered Sudafed 60 mg PO, Sodium Chloride 1000 mL @ 999 mL/hr IV, Tylenol 1000 mg PO, Toradol 30 mg IV. Patient was ordered for IV ceftriaxone 1 g, he received 875 mg of oral Augmentin. He received 60 mg of oral prednisone. The patient was reassessed and doing well, he is being discharged home. Medical Decision Differential Diagnosis includes; influenza, flue-like illness, pneumonia, bronchitis, sinusitis, otitis media, dehydration, electrolyte imbalance, anemia. Patient does have a mild leukocytosis at 13,000, this is consistent with infection. No anemia. No significant electrolyte abnormality, kidney failure or hepatitis. Influenza testing was negative. Chest film does not show pneumonia or pneumothorax. Brain CT shows no acute bleed or mass-effect, sinusitis was seen. On exam, there was no evidence for meningismus, he was not febrile. The patient presents with flulike and cough and cold-like symptoms that have been ongoing for a few months. On exam, he appeared to have sinusitis and this was confirmed by CT. Given his symptoms for the 2 months, I did think antibiotic therapy was indicated. The patient was given oral Sudafed, oral prednisone, oral Augmentin, oral Tylenol. He received IV saline, IV Toradol and IV ceftriaxone. The patient feels markedly improved and is being discharged on oral Augmentin and oral prednisone. He will be using Sudafed as well. If he is worsening or not improving, he will return for reassessment. Medication Reconcilliation Current Medication List: was personally reviewed by me Blood Pressure Screening Patient's blood pressure: Elevated blood pressure Blood pressure disposition: Referred to PCP Impression Primary Impression: Acute sinusitis Scribe Attestation The scribe's documentation has been prepared under my direction and personally reviewed by me in its entirety. I confirm that the note above accurately reflects all work, treatment, procedures, and medical decision making performed by me. Departure Information Dispostion Home / Self-Care Prescriptions No Active Prescriptions or Reported Meds Referrals [facility] (PCP) Patient Instructions My [facility]
--- NOTE | 2018-01-10 14:38 | DIAGNOSTIC IMAGING REPORT ---
CHEST ONE VIEW PORTABLE CLINICAL HISTORY: Evaluate Fever/Sepsis dyspnea COMPARISON STUDY: 03/17/2017 FINDINGS: The bones soft tissues and hemidiaphragms are normal. The cardiomediastinal silhouette is normal. The lungs are clear. The pulmonary vasculature is normal. IMPRESSION: Negative chest. The above report was generated using voice recognition software. It may contain grammatical, syntax or spelling errors. Electronically signed by: Eddie Salinas M.D. 01/10/2018 2:37 PM Dictated Date/Time: 01/10/2018 2:37 PM
--- NOTE | 2018-01-10 14:53 | DIAGNOSTIC IMAGING REPORT ---
CT SCAN OF THE BRAIN WITHOUT IV CONTRAST CLINICAL HISTORY: Headache. COMPARISON STUDY: No priors. TECHNIQUE: Unenhanced axial CT scan of the brain is performed from the vertex to the skull base. A dose lowering technique was utilized adhering to the principles of ALARA. CT DOSE: 788.63 mGycm FINDINGS: Brain parenchyma: The brain parenchyma is normal in appearance. There is no hemorrhage, mass effect, or evidence of acute territorial ischemia by CT criteria. Sellers-white matter is preserved. No extra-axial fluid collection is seen. Ventricles, sulci, cisterns: Normal in configuration. Intracranial vasculature: The visualized intracranial vasculature at the skull base is normal in appearance. Calvarium: Unremarkable. Sinuses and mastoids: There is a 2.2 cm retention cyst in the left maxillary antrum. Moderate mucosal thickening is seen within the ethmoid sinuses and the left sphenoid sinus. Mucosal thickening is also seen in the frontal sinuses, right greater than left. The mastoid air cells are well pneumatized. Orbits: The bony orbits are grossly intact. IMPRESSION: 1. No acute intracranial abnormality. 2. Paranasal sinus disease as above. Electronically signed by: Myron Cordon M.D. 01/10/2018 2:52 PM Dictated Date/Time: 01/10/2018 2:50 PM
[2018-01-10 15:07] LABS: INFLUENZA B ANTIGEN Neg for Influ B (NEG)
[2018-01-10] MEDS ORDERED: CEFTRIAXONE SOD INJ 1 GM ADDVIAL IV STA (15:07)
[2018-01-10] MEDS ORDERED: AMOXICILLIN/CLAVULANATE TAB 875 MG TAB PO ONE (15:15)
[2018-01-10 15:25] LABS: ALBUMIN 3.7 gm/dl (3.4-5.0); CALCIUM 9.1 mg/dl (8.5-10.1); POTASSIUM 3.4 mmol/L (3.5-5.1)
[2018-01-10 15:28] LABS: TOTAL PROTEIN 7.7 gm/dl (6.4-8.2)
[2018-01-10 16:10] LABS: HEMATOCRIT 45.6 % (42-52); HEMOGLOBIN 17.1 g/dL (14.0-18.0); MEAN CELL VOLUME 88.7 fL (80-100); MEAN CORPUSCULAR HEMOGLOBIN 33.3 pg (25-34); MEAN CORPUSCULAR HGB CONC 37.5 g/dl (32-36); PLATELET COUNT 219 K/uL (130-400); WHITE BLOOD COUNT 13.66 K/uL (4.8-10.8)
[2018-01-10 16:26] LABS: BASO % 0.1 %; BASO ABS # 0.02 K/uL (0-0.2); EOS ABS # 0.14 K/uL (0-0.5); IG# 0.01 K/uL (0.00-0.02); LYMPH % 16.9 %; LYMPH ABS # 2.31 K/uL (1.2-3.4); MONO % 8.6 %; MONO ABS # 1.17 K/uL (0.11-0.59); NEUT % 73.3 %; NEUT ABS # 10.01 K/uL (1.4-6.5)
[2018-01-10 17:06] VITALS: BP 138/83; PULSE 97; O2SAT 99
== END 2018-01-10 17:45 | disposition home or self-care (01) ==
LOC: C.EDB 13:53 → C.EDC 17:45
DX: J01.90 Acute sinusitis, unspecified (principal)

== ENCOUNTER 2022-06-15 10:24 | Observation (INO) ==
[2022-06-15] MEDS ORDERED: ONDANSETRON INJ 2 MG/ML 2 ML VIAL IV STA ×2 (11:02→14:43)
[2022-06-15] MEDS ORDERED: ACETAMINOPHEN 1,000 MG/100 ML VIAL IV STA (11:02)
[2022-06-15] MEDS ORDERED: SODIUM CHLORIDE 0.9% 1000ML 1,000 ML IV SCH ×2 (11:03→14:44)
--- NOTE | 2022-06-15 11:40 | XRay Report ---
XR chest 1V portable CLINICAL HISTORY: cough, SOB, +COVID TECHNIQUE: Single frontal radiograph of the chest was obtained. Comparison: Comparison is made to chest radiograph 11/13/2021 FINDINGS: Exam is limited by underpenetration. The cardiomediastinal silhouette is normal. The lungs are clear. No evidence of pleural effusion or pneumothorax. IMPRESSION: No acute abnormalities and in particular no evidence of pneumonia. ACT 112: Negative or not required by law. Electronically signed by: Magdaleno Aranda M.D. 06/15/2022 11:39 AM
[2022-06-15 11:59] LABS: Basophils # (auto) 0.04 K/uL (0-0.2); Basophils % (auto) 0.4 %; Eosinophils # (auto) 0.09 K/uL (0-0.50); Hematocrit (blood only) 40.4 % (40.1-51.0); Hemoglobin 14.9 g/dl (14.0-18.0); Immature Granulocytes # (auto) 0.04 K/uL (0.00-0.02); Immature Granulocytes % (auto) 0.4 %; Lymphocytes # (auto) 1.23 K/uL (1.2-3.4); Lymphocytes % (auto) 13.6 %; Mean Corpuscular Hemoglobin 32.5 pg (25.0-34.0); Mean Corpuscular Hgb Conc 36.9 g/dL (32.0-36.0); Mean Platelet Volume 10.7 fL (9.4-12.4); Monocytes # (auto) 1.15 K/uL (0.24-0.82); Monocytes % (auto) 12.7 %; Neutrophils # (auto) 6.51 K/uL (1.4-6.5); Neutrophils % (auto) 71.9 %; Platelet Count 181 K/uL (130-400); RDW Coefficient of Variation 11.5 % (11.5-14.5); RDW Standard Deviation 36.8 fL (36.4-46.3); Red Blood Count 4.59 M/uL (4.63-6.08); White Blood Count 9.06 K/ul (4.8-10.8)
[2022-06-15 12:41] LABS: Albumin Globulin Ratio 1.4 (0.9-2); Albumin Level 4.3 gm/dl (3.4-5.0); BUN Creatinine Ratio 9.5 (10-20); Bilirubin,Total 2.7 mg/dl (0.2-1.0); Calcium 8.9 mg/dl (8.5-10.1); Creatinine Clr Calc Pharmacy 98.8 ml/min; Est GFR (African American) 92.1 ml/min; Est GFR (Non-African American) 79.4 ml/min; Potassium 3.3 mmol/L (3.5-5.1); Total Protein 7.3 gm/dl (6.0-8.3)
[2022-06-15] MEDS ORDERED: KETOROLAC 30 MG/ML VIAL IV ONE (13:22)
[2022-06-15] MEDS ORDERED: hydroCHLOROthiazide 25 MG TAB PO STA (14:43)
[2022-06-15] MEDS ORDERED: LABETALOL HCL IV 5 MG/ML 20ML IV STA (15:25)
--- NOTE | 2022-06-15 17:27 | CT Scan Report ---
CT OF THE HEAD WITHOUT CONTRAST CLINICAL HISTORY: headache, hypertension COMPARISON STUDY: Head CT August 15, 2018. CT DOSE: 614.27 mGy.cm TECHNIQUE: Helical axial images of the head were obtained without IV contrast. Automated exposure con trol was utilized for the study. A dose lowering technique was utilized adhering to the principles o f ALARA. FINDINGS: No acute intracranial hemorrhage, midline shift or mass effect is present. The ventricular system is unremarkable. The basal cisterns are patent. No extra-axial collections are present. There are no findings to suggest acute dural sinus thrombosis or acute territorial infarct. No significant calvarial abnormalities are present. Mucous retention cyst within the left maxillary sinus is again n oted. IMPRESSION: No acute intracranial findings. ACT 112: Negative or not required by law. Electronically signed by: Camilo Taylor M.D. 06/15/2022 5:25 PM
--- NOTE | 2022-06-15 17:46 | Emergency Department Note ---
Impression & Plan COVID-19, Headache, Hypertension, Tachycardia ED Provider Note CHIEF COMPLAINT: COVID-19 symptoms HISTORY OF PRESENT ILLNESS: Ronan Bergman is a 37 year old male with history of HTN who presents to the Emergency Department for evaluation of headaches, sinus congestion, sore throat, shortness of breath, nausea, vomiting and generalized body aches which have become progressively worse over the past 3 days. The patient was seen in the ED for his symptoms last night and had a COVID-19 test, ultimately discharged to home with results pending. The results did come back positive and when the patient was called this morning to inform him, he noted that his symptoms, especially his headache, had become much worse, so he was advised to come back for further evaluation. Currently, he rates his discomfort as a 10/10 which was not improved after taking Excedrin and Benadryl last evening. He has not been able to take any medications today, including his blood pressure medication, due to nausea/vomiting. The patient otherwise denies having a productive cough, chest pain, abdominal pain or urinary symptoms. He denies ill contacts. REVIEW OF SYSTEMS: 10 systems were reviewed and were negative unless otherwise stated in HPI as above PHYSICAL EXAM: VITALS: Vitals are noted on the nurse's note and reviewed by myself. Hypertensive and tachycardic. Low grade fever at 37.5. Maintaining oxygen saturation levels at 97% on room air General: Resting in bed, appears very uncomfortable, complaining of headache HEENT: Normocephalic, atraumatic, PERRL, EOMI, clear/yellow mucous in the bilateral nares, bilateral TMs clear without bulging or fluid, mucous membranes moist, mild erythema to the posterior oropharynx, no edema or exudates, airway patent Neck: Supple, mild cervical lymphadenopathy with tenderness to palpation, ROM intact without pain, no meningismus Resp: Good inspiratory effort on room air, lung sounds clear bilaterally without wheezing, rales or rhonchi CV: Tachycardic rate, regular rhythm, normal S1-S2, peripheral pulses palpated Back: Non-tender to palpation Abd: Obese, soft, non-tender to palpation MSK: Moving all extremities without apparent pain or difficulty Integumentary: Mildly diaphoretic, otherwise no appreciable rash Neuro: Awake, alert and oriented x 3, interacting and answering questions appropriately Differential diagnosis includes COVID-19, viral syndrome, pneumonia, bronchitis, meningitis, intracranial pathology, PE, as well as others were entertained. EMERGENCY DEPARTMENT COURSE: Physical exam and history were performed. Nursing triage notes, EMR, and medication list were personally reviewed. Patient is a 37 year old male with history of HTN who presents to the Emergency Department for evaluation of headaches, sinus congestion, sore throat, shortness of breath, nausea, vomiting and generalized body aches which have become progressively worse over the past 3 days. He was evaluated in the emergency department last evening and was tested for COVID-19. He was contacted regarding the positive result this morning and was advised to return as he noted that his symptoms had become worse. Vital signs were obtained. He was hypertensive at 187/105 and tachycardic at 123 beats per minutes. Low-grade fever at 37.5 C. Maintaining oxygen saturations at 96% on room air. Continuous day habilitation specialist: Order was placed for continuous day habilitation specialist. Patient was placed on the day habilitation specialist. Patient was noted to be in sinus tachycardia at an initial rate of 123 bpm. EKG was obtained and showed sinus tachycardia at 113 bpm with nonspecific T wave abnormality. No ectopy or concern for acute ischemic change. When compared to study from 08/03/2021, no significant change was identified. IV access was established and the patient was given a total of 2 L NSS, Ofirmev 1000 mg, Zofran 4 mg x 2, and Toradol 30 mg. He was also given hydrochlorothiazide 25 mg as he had not taken his home medications today. He was also given labetalol 10 mg due to persistent hypertension in the 180s, systolically. Chest x-ray was obtained and reviewed by radiologist and myself as below. No concern for pleural effusion, pneumonia or other acute findings. Labs were obtained and reviewed by myself as below. Of note, no concern for leukocytosis with a WBC of 9.06. No concern for anemia with hemoglobin 14.9. Mild hypokalemia at 3.3, however appears to be at his baseline compared to previous. Electrolytes otherwise WNL. Renal indices stable. LFTs nondiagnostic. The patient was reevaluated several times throughout his emergency department course. He continued to remain hypertensive and tachycardic despite given the medications as noted above. I did discuss with my attending, Dr. Cronin. A CAT scan of the patient's head was obtained given his persistent hypertension. This was reviewed by radiologist and myself as below. Images were negative for acute intracranial findings. The patient was again reevaluated and was having mild improvement of his headache, although he still continued to be hypertensive and tachycardic. I discussed the results the above findings with him at bedside. I do feel that he would benefit from continued monitoring in the hospital given his recent COVID19 diagnosis with continued hypertension and tachycardia. I did call Dr. Marquez of the [facility] hospitalist group. He did recommend obtaining a CT angiogram of the patient's chest to rule out PE. This was ordered and the results are pending. They did agreed to evaluate the patient as well. The patient verbalizes understanding and agreement with the treatment plan as above. The chart was completed utilizing [employer] Speech Voice Recognition Software. Grammatical errors, random word insertions, pronoun errors, and incomplete sentences are an occasional consequence of this system due to software limitations, ambient noise, and hardware issues. Any formal questions or concerns about the content, text, or information contained within the body of this dictation should be directly addressed to the provider for clarification. 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 marital status: Single Current Living Situation: Alone current occupational status: employed current occupation: [employer] Feels Safe at Home: Yes Childhood Exposure to Second-Hand Smoke: No Dental Care, Regularly: No Physical Activity Frequency: Daily Seatbelt Use: always Sunscreen Use: No Assistive Devices: Glasses Allergies Allergies Allergy/AdvReac Type Severity Reaction Status Date / Time No Known Allergies Allergy Verified 06/06/22 15:09 Home Meds Home Medications Medication Instructions Recorded Confirmed hydrochlorothiazide 50 mg tablet 25 mg PO DAILY 12/09/21 06/06/22 Results & Data (ED) Vital Signs Vital Signs - 24 hr 06/15/22 10:31 06/15/22 11:43 06/15/22 11:50 Temperature 37.5 C Temperature Source Temporal Artery Scan Pulse Rate 123 H 105 H 111 H Pulse Rate [Left] Pulse Rate from SpO2 Sensor Pulse Rhythm Regular Pulse Rhythm [Left] Pulse Strength Normal Respiratory Rate 20 20 29 H Respiratory Effort / Characteristics Non-Labored Spontaneous Respiratory Depth Normal Respiratory Pattern Regular Blood Pressure 187/105 H Blood Pressure [Left Arm] Blood Pressure Mean 132 Blood Pressure Mean [Left Arm] Blood Pressure Position Sitting Pulse Oximetry 96 Oxygen Delivery Method Room Air Sepsis Recent Fever Within 48 Hours No Sepsis New/Unexplained Change in Mental Status No Sepsis Action Taken by Nursing No Action Required 06/15/22 11:50 06/15/22 12:00 06/15/22 12:00 Temperature Temperature Source Pulse Rate 110 H Pulse Rate [Left] Pulse Rate from SpO2 Sensor 110 H Pulse Rhythm Pulse Rhythm [Left] Pulse Strength Respiratory Rate 28 H Respiratory Effort / Characteristics Respiratory Depth Respiratory Pattern Blood Pressure 180/114 H 197/117 H Blood Pressure [Left Arm] Blood Pressure Mean 136 143 Blood Pressure Mean [Left Arm] Blood Pressure Position Pulse Oximetry 94 Oxygen Delivery Method Sepsis Recent Fever Within 48 Hours Sepsis New/Unexplained Change in Mental Status Sepsis Action Taken by Nursing 06/15/22 12:30 06/15/22 12:30 06/15/22 13:00 Temperature Temperature Source Pulse Rate 109 H Pulse Rate [Left] Pulse Rate from SpO2 Sensor 110 H Pulse Rhythm Pulse Rhythm [Left] Pulse Strength Respiratory Rate 27 H Respiratory Effort / Characteristics Respiratory Depth Respiratory Pattern Blood Pressure 169/121 H 197/114 H Blood Pressure [Left Arm] Blood Pressure Mean 137 141 Blood Pressure Mean [Left Arm] Blood Pressure Position Pulse Oximetry 91 Oxygen Delivery Method Sepsis Recent Fever Within 48 Hours Sepsis New/Unexplained Change in Mental Status Sepsis Action Taken by Nursing 06/15/22 13:00 06/15/22 13:30 06/15/22 13:30 Temperature Temperature Source Pulse Rate 116 H 111 H Pulse Rate [Left] Pulse Rate from SpO2 Sensor 114 H 113 H Pulse Rhythm Pulse Rhythm [Left] Pulse Strength Respiratory Rate 29 H 22 Respiratory Effort / Characteristics Respiratory Depth Respiratory Pattern Blood Pressure 168/116 H Blood Pressure [Left Arm] Blood Pressure Mean 133 Blood Pressure Mean [Left Arm] Blood Pressure Position Pulse Oximetry 97 97 Oxygen Delivery Method Sepsis Recent Fever Within 48 Hours Sepsis New/Unexplained Change in Mental Status Sepsis Action Taken by Nursing 06/15/22 14:00 06/15/22 14:00 06/15/22 14:30 Temperature Temperature Source Pulse Rate 112 H Pulse Rate [Left] Pulse Rate from SpO2 Sensor 111 H Pulse Rhythm Pulse Rhythm [Left] Pulse Strength Respiratory Rate 24 Respiratory Effort / Characteristics Respiratory Depth Respiratory Pattern Blood Pressure 202/122 H 180/109 H Blood Pressure [Left Arm] Blood Pressure Mean 148 132 Blood Pressure Mean [Left Arm] Blood Pressure Position Pulse Oximetry 93 Oxygen Delivery Method Sepsis Recent Fever Within 48 Hours Sepsis New/Unexplained Change in Mental Status Sepsis Action Taken by Nursing 06/15/22 14:30 06/15/22 15:49 Temperature Temperature Source Pulse Rate 100 H Pulse Rate [Left] 105 H Pulse Rate from SpO2 Sensor 101 H Pulse Rhythm Pulse Rhythm [Left] Regular Pulse Strength Respiratory Rate 20 Respiratory Effort / Characteristics Non-Labored Respiratory Depth Normal Respiratory Pattern Blood Pressure Blood Pressure [Left Arm] 181/105 H Blood Pressure Mean Blood Pressure Mean [Left Arm] 130 Blood Pressure Position Pulse Oximetry 93 97 Oxygen Delivery Method Sepsis Recent Fever Within 48 Hours Sepsis New/Unexplained Change in Mental Status Sepsis Action Taken by Nursing Laboratory Data Result diagrams: 06/15/22 11:40 06/15/22 11:40 Lab Results 06/15/22 06/15/22 Range/Units 11:40 11:40 WBC 9.06 (4.8-10.8) K/ul RBC 4.59 L (4.63-6.08) M/uL Hgb 14.9 (14.0-18.0) g/dl Hct 40.4 (40.1-51.0) % MCV 88.0 (80.0-100.0) fL MCH 32.5 (25.0-34.0) pg MCHC 36.9 H (32.0-36.0) g/dL RDW Std Deviation 36.8 (36.4-46.3) fL RDW Coeff of [place] 11.5 (11.5-14.5) % Plt Count 181 (130-400) K/uL MPV 10.7 (9.4-12.4) fL Immature Gran % (Auto) 0.4 % Neut % (Auto) 71.9 % Lymph % (Auto) 13.6 % [place] % (Auto) 12.7 % Eos % (Auto) 1.0 % Baso % (Auto) 0.4 % Neut # (Auto) 6.51 H (1.4-6.5) K/uL Lymph # (Auto) 1.23 (1.2-3.4) K/uL [place] # (Auto) 1.15 H (0.24-0.82) K/uL Eos # (Auto) 0.09 (0-0.50) K/uL Baso # (Auto) 0.04 (0-0.2) K/uL Immature Gran # (Auto) 0.04 H (0.00-0.02) K/uL Sodium 139 (136-145) mmol/L Potassium 3.3 L (3.5-5.1) mmol/L Chloride 103 (98-107) mmol/L Carbon Dioxide 29 (21-32) mmol/L Anion Gap 7 (3-11) BUN 11 (6-23) mg/dl Creatinine 1.16 (0.6-1.4) mg/dl Est Cr Clr Drug Dosing 98.8 ml/min Est GFR ( Amer) 92.1 ml/min Est GFR (Non-Af Amer) 79.4 ml/min BUN/Creatinine Ratio 9.5 L (10-20) Glucose 99 (70-99(Fasting)) mg/dl Calcium 8.9 (8.5-10.1) mg/dl Total Bilirubin 2.7 H (0.2-1.0) mg/dl AST 20 (13-39) U/L ALT 19 (7-52) U/L Alkaline Phosphatase 67 (34-104) U/L Total Protein 7.3 (6.0-8.3) gm/dl Albumin 4.3 (3.4-5.0) gm/dl Globulin 3.0 (2.5-4.0) gm/dl Albumin/Globulin Ratio 1.4 (0.9-2) Administered Medications Discontinued Medications Hydrochlorothiazide (Hydrochlorothiazide 25 Mg Tab) 25 mg PO NOW STA Stop: 06/15/22 14:44 Last Admin: 06/15/22 15:28 Dose: 25 mg Documented By: JENNY Sodium Chloride (Nss 1000ml) 1,000 mls @ 999 mls/hr IV .Q1H1M RANDEE Stop: 06/15/22 12:03 Last Infusion: 06/15/22 13:30 Dose: 0 mls/hr Documented By: Admin: 06/15/22 11:45 Dose: 999 mls/hr Documented By: ADAIR Acetaminophen (Ofirmev) 1,000 mg in 100 mls @ 400 mls/hr IV NOW STA Stop: 06/15/22 11:16 Last Infusion: 06/15/22 12:03 Dose: 0 mls/hr Documented By: Admin: 06/15/22 11:45 Dose: 400 mls/hr Documented By: ADAIR Sodium Chloride (Nss 1000ml) 1,000 mls @ 999 mls/hr IV .Q1H1M RANDEE Stop: 06/15/22 15:44 Last Infusion: 06/15/22 17:02 Dose: 0 mls/hr Documented By: Admin: 06/15/22 15:31 Dose: 999 mls/hr Documented By: JENNY Ketorolac Tromethamine (Ketorolac 30 Mg/Ml Vial) 30 mg IV NOW ONE Stop: 06/15/22 13:23 Last Admin: 06/15/22 15:28 Dose: 30 mg Documented By: JENNY Labetalol HCl (Labetalol Hcl Iv 5 Mg/Ml 20ml) 10 mg IV NOW STA Stop: 06/15/22 15:26 Last Admin: 06/15/22 15:48 Dose: 10 mg Documented By: JENNY Co-signed By: KENY Ondansetron HCl (Ondansetron Inj 2 Mg/Ml 2 Ml Vial) 4 mg IV NOW STA Stop: 06/15/22 11:03 Last Admin: 06/15/22 11:45 Dose: 4 mg Documented By: ADAIR Ondansetron HCl (Ondansetron Inj 2 Mg/Ml 2 Ml Vial) 4 mg IV NOW STA Stop: 06/15/22 14:44 Last Admin: 06/15/22 15:28 Dose: 4 mg Documented By: JENNY Imaging Data Radiologist's Impression: Chest X-Ray 06/15/22 11:02 XR chest 1V portable CLINICAL HISTORY: cough, SOB, +COVID TECHNIQUE: Single frontal radiograph of the chest was obtained. Comparison: Comparison is made to chest radiograph 11/13/2021 FINDINGS: Exam is limited by underpenetration. The cardiomediastinal silhouette is normal. The lungs are clear. No evidence of pleural effusion or pneumothorax. IMPRESSION: No acute abnormalities and in particular no evidence of pneumonia. ACT 112: Negative or not required by law. Electronically signed by: Magdaleno Aranda M.D. 06/15/2022 11:[address] 06/15/22 15:27 CT OF THE HEAD WITHOUT CONTRAST CLINICAL HISTORY: headache, hypertension COMPARISON STUDY: Head CT August 15, 2018. CT DOSE: 614.27 mGy.cm TECHNIQUE: Helical axial images of the head were obtained without IV contrast. Automated exposure control was utilized for the study. A dose lowering technique was utilized adhering to the principles of ALARA. FINDINGS: No acute intracranial hemorrhage, midline shift or mass effect is present. The ventricular system is unremarkable. The basal cisterns are patent. No extra-axial collections are present. There are no findings to suggest acute dural sinus thrombosis or acute territorial infarct. No significant calvarial abnormalities are present. Mucous retention cyst within the left maxillary sinus is again noted. IMPRESSION: No acute intracranial findings. ACT 112: Negative or not required by law. Electronically signed by: Camilo Taylor M.D. 06/15/2022 5:25 PM Discharge Plan Visit Data Chief Complaint: Illness Stated Complaint: ABNORMAL LABS ED Provider: Flex Cronin ED Midlevel Provider: May Haynes Discharge Problem: COVID-19, Headache, Hypertension, Tachycardia Patient Disposition: Admitted As Inpatient Forms Stand Alone Forms: [facility] Prescriptions Prescriptions: No Action hydrochlorothiazide 50 mg tablet 25 mg PO DAILY Referrals Referrals: Mak Shaikh, [Primary Care Provider] -
--- NOTE | 2022-06-15 19:18 | History & Physical Report ---
Date of Service June 15, 2022 Assessment & Plan (1) Acute sinusitis: Plan: 37 year old man with history of hypertension (HCTZ 25 mg daily) who presented to the ED with worsening symptoms consistent acute sinusitis found to be secondary to COVID-19 infection, who was admitted for r/o thromboembolic cause of headache, SOB. Acute sinusitis -likely secondary to COVID-19 infection. Now s/p dexamethasone x1. -CT head, CTA chest, CXR all negative for acute cardiopulmonary process * Supportive management: Tylenol, Zofran, IV fluid bolus. Headache -improved. Now 11/25, down from 07/25. Head CT negative. Suspect headache is from sinus pressure. * IV Tylenol prn Hypokalemia -likely secondary to combination of emesis, poor po intake, and chronic HCTZ use (since 2018). * Replete to target K of 4: 40 mEq po KCl x2. * Trend AM labs * Stopping HCTZ, starting losartan 25 mg qAM. Plan to continue losartan at discharge. Hypertension -Pt. has hypertension at baseline, managed with HCTZ since 2018. Unclear if pressures are due to illness, sinus headache, or poor medication adherence at baseline. Current elevated pressures could also represent baseline. -Suspect the latter, as review of BPs since 2019 show persistently elevated BPs to the 150s and 160s. -CT head, CTA chest negative for thromboembolic process. * Losartan therapy, as above. Would likely benefit from combination antihypertensive therapy (CCB vs. BB). Recommend outpatient follow-up at discharge for further med titration. * Trend vitals * Anticipate discharge once BP under control. Hyperlipidemia -Total cholesterol of 204, with hypertriglyceridemia (171), elevated VLDL (34). -Hgb A1c: 4.3. * Recommend outpatient follow-up for initiation of statin therapy (vs fibrate monotherapy). Code: Full code Dispo: Med-Surg with telemetry FEN/GI: Low sodium diet DVT Prophylaxis: none PT/OT: No Consults: None Case management: routine dispo planning (2) COVID-19: (3) Headache: (4) Hypertension: (5) Tachycardia: (6) Hypokalemia: History of Present Illness Primary Care Provider: Mak Shaikh DO Ronan is a 37 year old man with a history of hypertension on HCTZ 25 mg who presented to the ER for worsening headache in the setting of a positive COVID-19 test on 06/14. He presented 06/14 to the ED with worsening frontal, maxillary sinus headache and pressure, sore throat and bilateral otalgia of 3 days duration. He was afebrile. He received Tylenol in the ED, and was discharged home before his COVID-19 test results returned, with instructions to continue Tylenol. His COVID-19 test subsequently returned positive and he was contacted by the ED to be informed of this result, at which point he complained of worsening interval headache (10/10 pain, refractory to Excedrin and Benadryl). He was then asked to return to the ED for further evaluation of his worsening headache. ED course was notable for blood pressure of 187/105, tachycardia to the 120s, temperature of 37.5 C, and oxygen saturation of 96% on RA. He was placed on cardiac monitoring and received IV Tylenol, Toradol 30mg, his home dose of HCTZ (25 mg) and 2L IV NS. EKG, CXR, CMP yielded no acute findings (BMP showed hypokalemia of 3.3). He received a dose of labetalol for persistent elevated BP. He was admitted for further workup of his headache symptoms. At present, most of his symptoms (fatigue, dyspnea at rest, bilateral otalgia) have improved. His headache is also improved (2/10 pain). His sinus pressure and cough have remained unchanged. Otherwise, he denies fever, chills, chest pain, abdominal pain, nausea, vomiting, dysuria, or myalgias. Allergies Allergy/AdvReac Type Severity Reaction Status Date / Time No Known Allergies Allergy Verified 06/06/22 15:09 Home Medications Medication Instructions Recorded Confirmed Type benzonatate 100 mg capsule 100 mg PO TID PRN cough #30 caps 06/16/22 Rx losartan 50 mg tablet 50 mg PO QAM #30 tabs 06/16/22 Rx Past Med/Surg History Medical History (Updated 06/16/22 @ 15:54 by Irma Overton PA-C) Acute sinusitis Conjunctivitis Leukocytosis Pharyngitis, acute Surgical History No pertinent past surgical history Family History Other No significant family history Denies family history of Ovarian cancer Prostate cancer Myocardial infarction Breast cancer Colorectal cancer Social History Smoking Status: Unknown if ever smoked Second Hand Exposure: No; Hx Alcohol Use: No Hx Substance Use: No Preferred Language: Albanian Communication Ability: Effective Visual Impairment: No Limitations Hearing Ability: Normal Administration Specialist Required: No Beliefs That Will Affect Care: None marital status: Single Current Living Situation: Alone current occupational status: employed current occupation: [employer] Feels Safe at Home: Yes Childhood Exposure to Second-Hand Smoke: No Dental Care, Regularly: No Physical Activity Frequency: Daily Seatbelt Use: always Sunscreen Use: No Assistive Devices: None Review of Systems Review of Systems: All systems reviewed & are unremarkable except as noted in HPI & below Physical Exam Physical Exam: General: Well-appearing, alert, interactive, and in no acute distress. HEENT: Normocephalic, atraumatic. EOM intact. Good conjugate gaze. Nares patent. Moist mucosal membranes. Neck: Supple. No lymphadenopathy. Normal ROM. CV: Tachycardic, sinus rhythm. Normal S1 and S2. No murmurs gallops or rubs. Respiratory: Normal respiratory effort. Lungs clear to auscultation bilaterally. No crackles, rhonchi, or wheezes. Abdomen: Soft, distended abdomen. No bruits heard on auscultation. No tenderness to deep palpation. No guarding or rebound. Extremities: Capillary refill <2 sec. 2+ dp equal bilaterally. No pedal edema. Neuro: Alert and oriented x3. Skin: Clean, dry, and intact. No rashes, bruises, or erythema. Results & Data Results & Data ([facility]) Vital Signs (Past 12 Hours) Vital Signs Temp Pulse Pulse Resp BP BP Pulse Ox 06/15/22 17:00 110 H 20 177/116 H 98 06/15/22 15:49 105 H 20 181/105 H 97 06/15/22 14:30 100 H 93 06/15/22 14:30 180/109 H 06/15/22 14:00 112 H 24 93 06/15/22 14:00 202/122 H 06/15/22 13:30 111 H 22 97 06/15/22 13:30 168/116 H 06/15/22 13:00 116 H 29 H 97 06/15/22 13:00 197/114 H 06/15/22 12:30 109 H 27 H 91 06/15/22 12:30 169/121 H 06/15/22 12:00 110 H 28 H 94 06/15/22 12:00 197/117 H 06/15/22 11:50 180/114 H 06/15/22 11:50 111 H 29 H 06/15/22 11:43 105 H 20 06/15/22 10:31 37.5 C 123 H 20 187/105 H 96 O2 Del Method 06/15/22 17:00 Room Air 06/15/22 15:49 06/15/22 14:30 06/15/22 14:30 06/15/22 14:00 06/15/22 14:00 06/15/22 13:30 06/15/22 13:30 06/15/22 13:00 06/15/22 13:00 06/15/22 12:30 06/15/22 12:30 06/15/22 12:00 06/15/22 12:00 06/15/22 11:50 06/15/22 11:50 06/15/22 11:43 06/15/22 10:31 Room Air Supervising Physician Co-Signing Physician Notes Attending addendum: I have physically seen this patient, have supervised the medical residents activities, and agree with the H&P unless as otherwise noted. Assessment and Plan: COVID-19 infection/severe headache/sinusitis- Dexamethasone 6 mg IV now and every morning IV fluid rehydration Acetaminophen 1000 mg IV every 8 hours as needed for mild pain or fever Uncontrolled hypertension- Pain management to control elevated blood pressure CT head negative CTA chest negative Stopping HCTZ and starting losartan as noted Remaining orders and notations as noted Resident Activity Tracking Resident Involvement: Resident Care Provided Care Provided: [facility] Medicine
[2022-06-15] MEDS ORDERED: OPTIRAY 300 500mL IV ONE (19:47)
--- NOTE | 2022-06-15 20:27 | CT Scan Report ---
CT ANGIOGRAPHY OF THE CHEST, PULMONARY EMBOLUS PROTOCOL CLINICAL HISTORY: Shortness of breath. Fever. Evaluate for pulmonary embolus. COMPARISON STUDY: Chest CT October 07, 2019. Chest radiograph performed earlier today. TECHNIQUE: Following IV administration of 120 mL of Optiray, helical axial images of the chest were o btained utilizing the pulmonary embolus protocol. Maximal intensity projections and sagittal and cor onal reformats were viewed on an independent 3D workstation. IV contrast was administered without co mplication. Automated exposure control was utilized for the study. A dose lowering technique was ut ilized adhering to the principles of ALARA. CT DOSE: 589.12 mGy.cm FINDINGS: No pulmonary emboli are identified. There is no thoracic aortic dissection. Size of the he art is normal. There is no pericardial effusion. No enlarged thoracic lymph nodes are present. No pne umothorax or pleural effusion. There is no consolidation to suggest pneumonia. Linear and groundglass opacities favor atelectasis. No acute fracture within the visualized bony thorax. IMPRESSION: 1. No pulmonary emboli identified. 2. No acute intrathoracic findings. ACT 112: Negative or not required by law. Electronically signed by: Camilo Taylor M.D. 06/15/2022 8:25 PM
[2022-06-15] MEDS ORDERED: dexAMETHasone**PF** 10 MG/ML VIAL IV ONE (23:01)
[2022-06-15] MEDS ORDERED: POLYETHYLENE (MIRALAX) 17 GM PACK PO PRN (23:01)
[2022-06-15] MEDS ORDERED: ONDANSETRON INJ 2 MG/ML 2 ML VIAL IV PRN (23:01)
[2022-06-15] MEDS ORDERED: ACETAMINOPHEN 325 MG TAB PO PRN (23:01)
--- NOTE | 2022-06-15 23:26 | Electrocardiogram Report ---
Test Reason : Blood Pressure : / mmHG Vent. Rate : 113 BPM Atrial Rate : 113 BPM P-R Int : 162 ms QRS Dur : 074 ms QT Int : 288 ms P-R-T Axes : 064 022 -29 degrees QTc Int : 395 ms Sinus tachycardia Nonspecific T wave abnormality Abnormal ECG When compared with ECG of 03-AUG-2021 04:52, No significant change was found Confirmed by Brandon Alva ([id number]) on 06/15/2022 11:26:16 PM Referred By: REFERRED SELF Confirmed By:Brandon Alva
[2022-06-16 07:48] LABS: BUN Creatinine Ratio 10.7 (10-20); Calcium 9.5 mg/dl (8.5-10.1); Creatinine Clr Calc Pharmacy 102.4 ml/min; Est GFR (African American) 96.1 ml/min; Est GFR (Non-African American) 82.9 ml/min; Potassium 3.4 mmol/L (3.5-5.1)
[2022-06-16] MEDS ORDERED: LOSARTAN POTASSIUM 50 MG TAB PO SCH (09:00)
[2022-06-16] MEDS ORDERED: LOSARTAN POTASSIUM 25 MG TAB PO SCH (09:00)
[2022-06-16] MEDS ORDERED: POTASSIUM CHLORIDE CRTAB 20 MEQ TABCR PO SCH (09:00)
[2022-06-16] MEDS ORDERED: BENZONATATE 100 MG CAPSULE PO PRN (13:57)
--- NOTE | 2022-06-16 15:40 | Ultrasound Report ---
ABDOMINAL ULTRASOUND, RIGHT UPPER QUADRANT HISTORY: hyperbilirubinemia. COMPARISON: Abdominal ultrasound 04/01/2021. FINDINGS: Pancreas: The pancreatic head and tail are obscured by overlying bowel gas. The remaining portions of the pancreas are within normal limits. Liver: Unremarkable. Gallbladder: No gallbladder wall thickening. No gallstones. CBD: 2 mm. Right kidney: No hydronephrosis. IMPRESSION: No significant abnormality identified within the right upper quadrant. ACT 112: Negative or not required by law. Electronically signed by: Dmitri Watt M.D. 06/16/2022 3:39 PM
--- NOTE | 2022-06-16 16:02 | Discharge Summary ---
Date of Service June 16, 2022 Admission HPI Per Admitting Provider Ronan is a 37 year old man with a history of hypertension on HCTZ 25 mg who presented to the ER for worsening headache in the setting of a positive COVID-19 test on 06/14. He presented 06/14 to the ED with worsening frontal, maxillary sinus headache and pressure, sore throat and bilateral otalgia of 3 days duration. He was afebrile. He received Tylenol in the ED, and was discharged home before his COVID-19 test results returned, with instructions to continue Tylenol. His COVID-19 test subsequently returned positive and he was contacted by the ED to be informed of this result, at which point he complained of wo rsening interval headache (10/10 pain, refractory to Excedrin and Benadryl). He was then asked to return to the ED for further evaluation of his worsening headache. ED course was notable for blood pressure of 187/105, tachycardia to the 120s, temperature of 37.5 C, and oxygen saturation of 96% on RA. He was placed on cardiac monitoring and received IV Tylenol, Toradol 30mg, his home dose of HCTZ (25 mg) and 2L IV NS. EKG, CXR, CMP yielded no acute findings (BMP showed hypokalemia of 3.3). He received a dose of labetalol for persistent elevated BP. He was admitted for further workup of his headache symptoms. At present, most of his symptoms (fatigue, dyspnea at rest, bilateral otalgia) have improved. His headache is also improved (2/10 pain). His sinus pressure and cough have remained unchanged. Otherwise, he denies fever, chills, chest pain, abdominal pain, nausea, vomiting, dysuria, or myalgias. Principal Diagnosis 1. Headache 2. Sinusitis 3. COVID-19 4. Uncontrolled hypertension Discharge Exam GENERAL: 37 yo Well-developed, well-nourished M. NAD. LUNGS: Clear to auscultation bilaterally. No W/R/R. CARDIOVASCULAR: Regular rate and rhythm. ABDOMEN: Soft, non-tender and non-distended. BS normoactive x 4 quad. EXTREMITIES: No edema. Non-tender. Peripheral pulses +2/4. NEUROLOGIC: A&O x3. Nonfocal PSYCHIATRIC: Cooperative. Appropriate mood and affect. SKIN: Warm, dry, intact. No rashes or lesions. Discharge Data Allergies Allergy/AdvReac Type Severity Reaction Status Date / Time No Known Allergies Allergy Verified 06/06/22 15:09 Consultations 06/15/22 17:54 ED Decision to Admit Stat 06/15/22 21:13 ED Decision to Admit Stat Ordered Studies Chest X-Ray 06/15/22 11:02 XR chest 1V portable CLINICAL HISTORY: cough, SOB, +COVID TECHNIQUE: Single frontal radiograph of the chest was obtained. Comparison: Comparison is made to chest radiograph 11/13/2021 FINDINGS: Exam is limited by underpenetration. The cardiomediastinal silhouette is normal. The lungs are clear. No evidence of pleural effusion or pneumothorax. IMPRESSION: No acute abnormalities and in particular no evidence of pneumonia. ACT 112: Negative or not required by law. Electronically signed by: Magdaleno Aranda M.D. 06/15/2022 11:[address] 06/15/22 15:27 CT OF THE HEAD WITHOUT CONTRAST CLINICAL HISTORY: headache, hypertension COMPARISON STUDY: Head CT August 15, 2018. CT DOSE: 614.27 mGy.cm TECHNIQUE: Helical axial images of the head were obtained without IV contrast. Automated exposure control was utilized for the study. A dose lowering technique was utilized adhering to the principles of ALARA. FINDINGS: No acute intracranial hemorrhage, midline shift or mass effect is present. The ventricular system is unremarkable. The basal cisterns are patent. No extra-axial collections are present. There are no findings to suggest acute dural sinus thrombosis or acute territorial infarct. No significant calvarial abnormalities are present. Mucous retention cyst within the left maxillary sinus is again noted. IMPRESSION: No acute intracranial findings. ACT 112: Negative or not required by law. Electronically signed by: Camilo Taylor M.D. 06/15/2022 5:25 PM Chest CTA 06/15/22 17:53 CT ANGIOGRAPHY OF THE CHEST, PULMONARY EMBOLUS PROTOCOL CLINICAL HISTORY: Shortness of breath. Fever. Evaluate for pulmonary embolus. COMPARISON STUDY: Chest CT October 07, 2019. Chest radiograph performed earlier today. TECHNIQUE: Following IV administration of 120 mL of Optiray, helical axial images of the chest were obtained utilizing the pulmonary embolus protocol. Maximal intensity projections and sagittal and coronal reformats were viewed on an independent 3D workstation. IV contrast was administered without complication. Automated exposure control was utilized for the study. A dose lowering technique was utilized adhering to the principles of ALARA. CT DOSE: 589.12 mGy.cm FINDINGS: No pulmonary emboli are identified. There is no thoracic aortic dissection. Size of the heart is normal. There is no pericardial effusion. No enlarged thoracic lymph nodes are present. No pneumothorax or pleural effusion. There is no consolidation to suggest pneumonia. Linear and groundglass opacities favor atelectasis. No acute fracture within the visualized bony thorax. IMPRESSION: 1. No pulmonary emboli identified. 2. No acute intrathoracic findings. ACT 112: Negative or not required by law. Electronically signed by: Camilo Taylor M.D. 06/15/2022 8:25 PM Liver Ultrasound 06/16/22 08:04 ABDOMINAL ULTRASOUND, RIGHT UPPER QUADRANT HISTORY: hyperbilirubinemia. COMPARISON: Abdominal ultrasound 04/01/2021. FINDINGS: Pancreas: The pancreatic head and tail are obscured by overlying bowel gas. The remaining portions of the pancreas are within normal limits. Liver: Unremarkable. Gallbladder: No gallbladder wall thickening. No gallstones. CBD: 2 mm. Right kidney: No hydronephrosis. IMPRESSION: No significant abnormality identified within the right upper quadrant. ACT 112: Negative or not required by law. Electronically signed by: Dmitri Watt M.D. 06/16/2022 3:39 PM Hospital Course (1) Headache: - CT head negative - Suspect likely d/t uncontrolled BP vs. COVID vs. sinusitis - Resolved (2) Acute sinusitis: - Given a dose of Decadron - Would advise Mucinex as o/p - Not convinced that he requires antibiotics at present (3) COVID-19: - Supportive care - No hypoxia or dyspnea - No indication for treatment with antivirals or steroids (4) Hypertension: - Uncontrolled, hydrochlorothiazide stopped - started on Losartan 50mg daily - Tolerating well and BP improved (5) Hyperbilirubinemia: - TB 2.7 this AM - RUQ U/S negative - Could be d/t covid v. gilbert's ? Plan At this time, patient is medically and hemodynamically stable for discharge. Plan has been discussed with Dr. Braden who has also seen and evaluated this patient and agrees with aforementioned. Total Time Total Time Spent Total Time Spent (In Minutes): >30 minutes Discharge Plan Discharge Items Patient Disposition: Home - Self-Care Reason For Visit: HYPERTENSION, COVID-19 SINUSITIS Discharge Diagnosis: covid-19 headache uncontrolled high blood pressure Activity: Resume your previous activity Non-emergency contact: Primary Care Provider Call non-emergency contact if: you have any medication questions Follow-up/Referrals: Mak Shaikh DO [Primary Care Provider] - Diet: Heart Healthy and Low Sodium (2gm) Addtl Attending Provider Instructions: You were hospitalized due to headache. Fortunately, your imaging studies did not reveal any significant abnormalities other than a cyst in your sinus cavity. It is likely that your elevated blood pressure along with some inflammation in your sinuses was contributing to your headache. I would recommend purchasing over the counter Mucinex and taking it twice a day as directed. You are also being prescribed Tessalon perles which you can take up to three times a day as needed for cough. As you know, you tested positive for COVID-19. However, since you are not having any low oxygen levels, you do not need to be treated with antiviral medications or steroids. Supportive care including rest, fluids, and use of Tylenol or Motrin as needed is all you need. You should isolate from others who are not sick with covid as directed by the cdc/[facility]. Lastly, you were noted to have an elevated liver marker prompting an ultrasound of your liver and gallbladder. This study came back normal. The elevation is probably related to your viral infection and should normalize over time. I would recommend your primary care doctor following up with this. For your elevated blood pressure, you were started on a medication called Losartan at a strength of 50mg daily. You should take this once a day. Remember to keep caffeine intake low and salt intake to a minimum. A prescription for this medication has been sent to your pharmacy. I have STOPPED your hydrochlorothiazide. It is recommended that you follow up with your family doctor within 1 week of discharge. If you have any questions/concerns following your discharge, please call the nonemergency number listed on your discharge paperwork. In the event of a medical emergency, call 911. Pending Studies at Discharge: No Stand-Alone Forms: My [employer], Smoking Cessation Medications and DC Order Prescriptions: New losartan 50 mg Tablet 50 mg PO QAM Qty: 30 0RF benzonatate 100 mg Capsule 100 mg PO TID PRN (Reason: cough) Qty: 30 0RF Discontinued hydrochlorothiazide 50 mg tablet 25 mg PO DAILY Discharge Orders: Discharge Order (Routine); Ordered 06/16/22 Ordered By: Irma Overton Admission Data Admit Date/Time: 06/15/22 20:08 Attending Provider: Erich Braden Admit Provider: Naeem Nixon Primary Care Provider: Mak Shaikh Other Providers: Kenneth Kaye Coding Level of Care Code 99149 OBS Care - Discharge Diagnoses Headache R51.9 Acute sinusitis J01.90 COVID-19 U07.1 Hypertension I10 Hypertension type: unspecified Hyperbilirubinemia E80.6
--- NOTE | 2022-06-16 23:14 | Billing Data ---
Date of Service June 16, 2022 Coding Level of Care Code INT OBSERVATION CARE 70M LVL 3
== END 2022-06-16 17:33 | disposition home or self-care (01) ==
LOC: ED 10:24 → EDINP 10:24 → SUATTDRO 20:08 → 2N 06-16 02:13

== ENCOUNTER 2023-04-11 07:30 | Inpatient (IN) ==
[2023-04-11] MEDS ORDERED: SODIUM CHLORIDE 0.9% 1000ML 1,000 ML IV STA (07:38)
[2023-04-11] MEDS ORDERED: AMPICILLIN/SULBACTAM SOD 3,000 MG in 0.9 % SODIUM CHLORIDE 100 ML IV STA (07:46)
[2023-04-11] MEDS ORDERED: dexAMETHasone**PF** 10 MG/ML VIAL IV ONE (07:46)
[2023-04-11] MEDS ORDERED: KETOROLAC TROMETHAMINE 15 MG/ML VIAL IV ONE (07:46)
--- NOTE | 2023-04-11 07:51 | Emergency Department Note ---
Impression & Plan Malaria, Headache, Fever ED Provider Note Provider: Abdoul Pisano MD DATE OF SERVICE: 04/11/2023 CHIEF COMPLAINT: Chills and fatigue HISTORY OF PRESENT ILLNESS: Patient is a 38-year-old gentleman history of hypertension presenting here today reporting chills and fatigue. Sore throat abdominally on the right and that he was strep throat positive started on amoxicillin 875 on the . Symptoms developed on the when he was in [place] and seen in urgent care there. States overnight could not sleep well. Took some ibuprofen as well as antibiotic at 10 PM last night. Chills ov ernight with fever. Some pain in the right neck extending into the right head. Nonproductive cough. Denies significant shortness of breath at this time or any significant GI upset. No trauma reported. States no diarrhea. States he is breathing and swallowing okay. PAST MEDICAL HISTORY: As noted above MEDICATIONS: Reviewed home medication list SOCIAL HISTORY: Non-smoker PHYSICAL EXAM: GENERAL: alert and oriented in no acute distress on stretcher Head: normocephalic and atraumatic EYES: No injection, discharge or icterus. NECK: Trachea midline. Supple without crepitus but some slight lymphadenopathy/fullness to the right neck. ENT: Mucous membranes pink and moist. Pharynx with some mild erythema to the right but no uvular deviation. No lingual swelling or elevation. TMs clear bilaterally. LUNGS: Airway patent. No retractions. Breath sounds clear with good air entry bilaterally. HEART: Regular rate and rhythm. No chest wall tenderness ABDOMEN: Soft and non-tender, without guarding or rebound. SKIN: Acyanotic, warm, dry, without rashes EXTREMITIES: Without swelling, tenderness or deformity NEUROLOGICAL: No focal deficits. No aphasia. No facial droop or slurred speech. Ambulatory. EK bpm sinus tachycardia. No clear acute ST segment elevation with nonspecific diffuse T wave changes with a QTc of 390. Compared to previous from June 15, 2022 lateral and some slightly increased inferior T wave inversions noted. CONTINUOUS CARDIAC MONITORING: was ordered and showed a heart rate of 100s-120s bpm in Sinus tachycardia Patient's laboratory studies and imaging reviewed. Differential includes Viral syndrome, otitis, pharyngitis, pneumonia, influenza, meningitis, urinary tract infection, sepsis, bacteremia, as well as other pathologies. IMPRESSION/MEDICAL DECISION MAKING: Patient appears somewhat fatigued noted to be tachycardic and febrile here. No medications this morning. Given some Toradol here IV fluids. Reports some pain in the throat and right neck. Does not appear frankly meningitic and is no focal neurological deficits. Protecting his airway and no clear evidence of Pito's angina. Has been on amoxicillin last dose last night as well as ibuprofen. Denies significant respiratory symptoms will obtain a chest x-ray to further exclude pneumonia. Papers from urgent care indicate he was strep +2 days ago. COVID test sent. We will complete a CT of the neck to exclude deeper infection in the neck or LABORATORY ASST. Will cover with Unasyn for broader antimicrobial coverage (particular oropharyngeal given concern for pharyngitis) at this time as well as given some IV fluid to treat his infectious symptoms of fever. Given some steroid to help with any inflammatory component given findings of pharyngitis and the neck discomfort. I doubt that he is meningitic at this point and he is moving his head fairly freely a little bit of tenderness with looking to the left. No evidence of AOM or mastoiditis on clinical exam. Benign abdomen doubt acute intra-abdominal pathology. Blood returns with a normal lactate. CT of the neck without RPA or mass noted. Chest x-ray without findings concerning for pneumonia. Anemia on blood work or leukocytosis. Some thrombocytopenia newly appreciated. Mild hypokalemia with a potassium of 2.8 noted. Stable renal function. Procalcitonin mildly elevated 0.97 with a total bili of 4.8. No transaminitis. Negative flu COVID and RSV. Negative anaplasmosis smear but received a call from pathologist that blood smear was concerning for malaria or babesiosis. Discussed with the patient that he did return from [facility] on the of this month. This is [place] home country and was not on malaria prophylaxis while there. Reports he had a history of malaria in the past and was quite sick with it. States this feels a bit similar but not as bad at this point. Malaria smear noted with 1 to 2% parasite burden. Discussed with infectious disease MD at the [facility] telemedicine service. Discussed with pharmacy extensively as well as the hospitalist. NOT in organ failure but given his significant symptoms and fevers do feel initiation of therapy with monitoring overnight is warranted. Antimalarial medication ordered by the hospitalist after extensive discussion, myself, pharmacy, and the infectious disease doctor. DIAGNOSIS: Malaria, sepsis DISPOSITION: Hospitalist will evaluate Patient was agreeable with this plan. Past Med/Surg History Medical History (Updated 04/11/23 @ 13:08 by Abdoul Pisano M.D.) Acute sinusitis Conjunctivitis Leukocytosis Pharyngitis, acute Surgical History No pertinent past surgical history Family History Other No significant family history Denies family history of Ovarian cancer Prostate cancer Myocardial infarction Breast cancer Colorectal cancer Social History Smoking Status: Never smoker Second Hand Exposure: No; Do You Dip or Chew Tobacco: No; Hx Alcohol Use: No Hx Substance Use: No Preferred Language: Ug[place] Communication Ability: Effective Visual Impairment: No Limitations Hearing Ability: Normal Incident Coordinator Required: No Beliefs That Will Affect Care: None marital status: Single Current Living Situation: Alone current occupational status: employed current occupation: [employer] Feels Safe at Home: Yes Childhood Exposure to Second-Hand Smoke: No Diet: regular Dental Care, Regularly: No Physical Activity Frequency: Daily Seatbelt Use: always Sunscreen Use: No Assistive Devices: None Allergies Allergies Allergy/AdvReac Type Severity Reaction Status Date / Time No Known Allergies Allergy Verified 01/13/23 13:41 Home Meds Home Medications Medication Instructions Recorded Confirmed amoxicillin 875 mg tablet 875 mg PO BID 04/11/23 04/11/23 ibuprofen 600 mg tablet 600 mg PO TID 04/11/23 04/11/23 Previous Rx's Medication Instructions Recorded blood pressure test kit-large #1 ea 07/07/22 losartan 50 mg tablet 50 mg PO QAM #90 tabs 10/21/22 yellow fever vaccine live (PF) 10 0.5 ml subcut ONCE #1 ea 01/13/23 exp4.74 unit/0.5 mL subcutaneous susp (YF-Vax (PF)) Results & Data (ED) Vital Signs Vital Signs - 24 hr 04/11/23 07:32 04/11/23 08:27 04/11/23 08:20 Temperature 38.3 C H Temperature Source Oral Pulse Rate 124 H 113 H 110 H Pulse Rate from SpO2 Sensor 110 H Pulse Rhythm Regular Respiratory Rate 20 28 H Respiratory Effort / Characteristics Non-Labored Spontaneous Respiratory Depth Normal Blood Pressure 164/120 H Blood Pressure Mean 134 Pulse Oximetry 95 97 Oxygen Delivery Method Room Air Sepsis Recent Fever Within 48 Hours No Sepsis New/Unexplained Change in Mental Status No Sepsis Action Taken by Nursing No Action Required 04/11/23 08:30 04/11/23 09:03 04/11/23 09:05 Temperature Temperature Source Pulse Rate 110 H 113 H Pulse Rate from SpO2 Sensor 111 H 114 H Pulse Rhythm Respiratory Rate 39 H 26 H Respiratory Effort / Characteristics Respiratory Depth Blood Pressure 182/106 H Blood Pressure Mean 150 Pulse Oximetry 96 95 Oxygen Delivery Method Sepsis Recent Fever Within 48 Hours Sepsis New/Unexplained Change in Mental Status Sepsis Action Taken by Nursing 04/11/23 09:05 04/11/23 09:30 04/11/23 10:00 Temperature Temperature Source Pulse Rate 114 H 114 H Pulse Rate from SpO2 Sensor 114 H 113 H Pulse Rhythm Respiratory Rate 26 H 26 H Respiratory Effort / Characteristics Respiratory Depth Blood Pressure 181/109 H Blood Pressure Mean 120 Pulse Oximetry 94 95 Oxygen Delivery Method Sepsis Recent Fever Within 48 Hours Sepsis New/Unexplained Change in Mental Status Sepsis Action Taken by Nursing 04/11/23 10:00 04/11/23 10:30 04/11/23 11:00 Temperature Temperature Source Pulse Rate 119 H 113 H 112 H Pulse Rate from SpO2 Sensor 119 H 113 H 112 H Pulse Rhythm Respiratory Rate 42 H 29 H 31 H Respiratory Effort / Characteristics Respiratory Depth Blood Pressure Blood Pressure Mean Pulse Oximetry 93 96 95 Oxygen Delivery Method Sepsis Recent Fever Within 48 Hours Sepsis New/Unexplained Change in Mental Status Sepsis Action Taken by Nursing 04/11/23 12:00 04/11/23 12:03 04/11/23 12:03 Temperature Temperature Source Pulse Rate 119 H 108 H Pulse Rate from SpO2 Sensor 120 H 108 H Pulse Rhythm Respiratory Rate 19 35 H Respiratory Effort / Characteristics Respiratory Depth Blood Pressure 176/110 H Blood Pressure Mean 130 Pulse Oximetry 93 94 Oxygen Delivery Method Sepsis Recent Fever Within 48 Hours Sepsis New/Unexplained Change in Mental Status Sepsis Action Taken by Nursing Laboratory Data 04/11/23 07:38 04/11/23 07:38 Lab Results 04/11/23 04/11/23 04/11/23 Range/Units 07:38 07:38 07:38 WBC 8.03 (4.8-10.8) K/ul RBC 4.46 L (4.70-6.10) M/uL Hgb 14.6 (14.0-18.0) g/dl Hct 38.6 L (42.0-52.0) % MCV 86.5 (80.0-100.0) fL MCH 32.7 (25.0-34.0) pg MCHC 37.8 H (32.0-36.0) g/dL RDW Std Deviation 37.0 (36.4-46.3) fL RDW Coeff of [place] 11.6 (11.5-14.5) % Plt Count 114 L (130-400) K/uL MPV 11.1 (9.4-12.4) fL Immature Gran % (Auto) 0.4 % Neut % (Auto) 80.1 % Lymph % (Auto) 11.1 % [place] % (Auto) 7.7 % Eos % (Auto) 0.2 % Baso % (Auto) 0.5 % Neut # (Auto) 6.43 (1.40-6.50) K/uL Lymph # (Auto) 0.89 L (1.2-3.4) K/uL [place] # (Auto) 0.62 H (0.11-0.59) K/uL Eos # (Auto) 0.02 (0-0.50) K/uL Baso # (Auto) 0.04 (0-0.2) K/uL Immature Gran # (Auto) 0.03 (0.01-0.20) K/uL Blood Smear Review Sodium 137 (136-145) mmol/L Potassium 2.8 L (3.5-5.1) mmol/L Chloride 103 (98-107) mmol/L Carbon Dioxide 27 (21-32) mmol/L Anion Gap 7 (3-11) BUN 14 (6-23) mg/dl Creatinine 1.23 (0.6-1.4) mg/dl Est Cr Clr Drug Dosing 90.8 ml/min Est GFR ( Amer) 85.2 ml/min Est GFR (Non-Af Amer) 73.5 ml/min BUN/Creatinine Ratio 11.4 (10-20) Glucose 137 H (70-99(Fasting)) mg/dl Lactate 1.5 (0.4-2.0) mmol/L Calcium 8.9 (8.6-10.3) mg/dl Total Bilirubin 4.8 H (0.2-1.0) mg/dl AST 24 (13-39) U/L ALT 20 (7-52) U/L Alkaline Phosphatase 78 (34-104) U/L Troponin I High Sens 9.1 (0-20) pg/ml Total Protein 7.2 (6.0-8.3) gm/dl Albumin 4.1 (3.4-5.0) gm/dl Globulin 3.1 (2.5-4.0) gm/dl Albumin/Globulin Ratio 1.3 (0.9-2) Procalcitonin (0-0.5) ng/ml Urine Color Urine Appearance (Clear) Urine pH (4.5-7.5) Ur Specific [place] (1.000-1.030) Urine Protein (Negative) Urine Glucose (UA) (Negative) Urine Ketones (Negative) Urine Blood (Negative) Urine Nitrite (Negative) Urine Bilirubin (Negative) Urine Urobilinogen (Negative) Ur Leukocyte Esterase (Negative) Urine WBC (Auto) (0-5) /hpf Urine RBC (Auto) (0-4) /hpf U Hyaline Cast (Auto) (0-5) /lpf U Epithel Cells (Auto) (0-5) /lpf Urine Bacteria (Auto) (Negative) Anaplasma Smear See Comment Babesia Smear Cancelled SARS-CoV-2 (PCR) (Negative) Influenza Type A (PCR) (Neg) Influenza Type B (PCR) (Neg) RSV (RT-PCR) (Neg) 04/11/23 04/11/23 04/11/23 Range/Units 07:38 08:16 09:04 WBC (4.8-10.8) K/ul RBC (4.70-6.10) M/uL Hgb (14.0-18.0) g/dl Hct (42.0-52.0) % MCV (80.0-100.0) fL MCH (25.0-34.0) pg MCHC (32.0-36.0) g/dL RDW Std Deviation (36.4-46.3) fL RDW Coeff of [place] (11.5-14.5) % Plt Count (130-400) K/uL MPV (9.4-12.4) fL Immature Gran % (Auto) % Neut % (Auto) % Lymph % (Auto) % [place] % (Auto) % Eos % (Auto) % Baso % (Auto) % Neut # (Auto) (1.40-6.50) K/uL Lymph # (Auto) (1.2-3.4) K/uL [place] # (Auto) (0.11-0.59) K/uL Eos # (Auto) (0-0.50) K/uL Baso # (Auto) (0-0.2) K/uL Immature Gran # (Auto) (0.01-0.20) K/uL Blood Smear Review Sodium (136-145) mmol/L Potassium (3.5-5.1) mmol/L Chloride (98-107) mmol/L Carbon Dioxide (21-32) mmol/L Anion Gap (3-11) BUN (6-23) mg/dl Creatinine (0.6-1.4) mg/dl Est Cr Clr Drug Dosing ml/min Est GFR ( Amer) ml/min Est GFR (Non-Af Amer) ml/min BUN/Creatinine Ratio (10-20) Glucose (70-99(Fasting)) mg/dl Lactate (0.4-2.0) mmol/L Calcium (8.6-10.3) mg/dl Total Bilirubin (0.2-1.0) mg/dl AST (13-39) U/L ALT (7-52) U/L Alkaline Phosphatase (34-104) U/L Troponin I High Sens (0-20) pg/ml Total Protein (6.0-8.3) gm/dl Albumin (3.4-5.0) gm/dl Globulin (2.5-4.0) gm/dl Albumin/Globulin Ratio (0.9-2) Procalcitonin 0.97 H (0-0.5) ng/ml Urine Color [place] Urine Appearance Clear (Clear) Urine pH 6.5 (4.5-7.5) Ur Specific [place] 1.035 H (1.000-1.030) Urine Protein 1+ H (Negative) Urine Glucose (UA) Negative (Negative) Urine Ketones Trace H (Negative) Urine Blood 1+ H (Negative) Urine Nitrite Negative (Negative) Urine Bilirubin Negative (Negative) Urine Urobilinogen Negative (Negative) Ur Leukocyte Esterase Negative (Negative) Urine WBC (Auto) 1-5 (0-5) /hpf Urine RBC (Auto) 10-30 H (0-4) /hpf U Hyaline Cast (Auto) 1-5 (0-5) /lpf U Epithel Cells (Auto) 10-20 H (0-5) /lpf Urine Bacteria (Auto) Negative (Negative) Anaplasma Smear Babesia Smear SARS-CoV-2 (PCR) NEGATIVE (Negative) Influenza Type A (PCR) Negative (Neg) Influenza Type B (PCR) Negative (Neg) RSV (RT-PCR) Negative (Neg) Administered Medications Acetaminophen (Acetaminophen 325 Mg Tab) 650 mg PO Q6H RANDEE Stop: 05/11/23 11:18 Last Admin: 04/11/23 12:42 Dose: 650 mg Documented By: AP Atovaquone/Proguanil (Atovaquone/Proguanil Hcl 62.5mg/25mg Tab) 16 tab PO DAILY RANDEE Stop: 04/13/23 09:01 Last Admin: 04/11/23 12:42 Dose: 16 tab Documented By: AP Discontinued Medications Dexamethasone Sodium Phosphate (DexamethasonePf 10 Mg/Ml Vial) 6 mg IV NOW ONE Stop: 04/11/23 07:47 Last Admin: 04/11/23 08:15 Dose: 6 mg Documented By: AM Sodium Chloride (Nss 1000ml) 1,000 mls @ 999 mls/hr IV .Q1H1M STA Stop: 04/11/23 08:38 Last Infusion: 04/11/23 09:59 Dose: 0 mls/hr Documented By: Admin: 04/11/23 08:13 Dose: 999 mls/hr Documented By: AM Ampicillin Sodium/Sulbactam Sodium 3,000 mg/ Sodium Chloride 108 mls @ 200 mls/hr IV NOW STA; Protocol Stop: 04/11/23 08:18 Last Infusion: 04/11/23 09:00 Dose: 0 mls/hr Documented By: Admin: 04/11/23 08:25 Dose: 200 mls/hr Documented By: AM Parenteral Electrolytes (Plasma-Lyte A Ph 7.4) 500 mls @ 999 mls/hr IV .Q31M ONE Stop: 04/11/23 11:44 Last Infusion: 04/11/23 12:38 Dose: 0 mls/hr Documented By: Admin: 04/11/23 11:58 Dose: 999 mls/hr Documented By: AP Ioversol (Optiray 320 100ml) 94 ml IV ONCE ONE Stop: 04/11/23 08:54 Last Admin: 04/11/23 08:54 Dose: 94 ml Documented By: KATIE Ketorolac Tromethamine (Ketorolac Tromethamine 15 Mg/Ml Vial) 10 mg IV NOW ONE Stop: 04/11/23 07:47 Last Admin: 04/11/23 08:13 Dose: 10 mg Documented By: AM Ondansetron HCl (Ondansetron Inj 2 Mg/Ml 2 Ml Vial) 4 mg IV NOW STA Stop: 04/11/23 08:50 Last Admin: 04/11/23 11:59 Dose: Not Given Documented By: CY Imaging Data Radiologist's Impression: Chest X-Ray 04/11/23 07:38 XR chest 1V portable CLINICAL HISTORY: Fever. COMPARISON STUDY: Chest radiograph and chest CT June 15, 2022. FINDINGS: Lung volumes are normal. Bibasilar opacities are predominantly linear in configuration. There is no pneumothorax or pleural effusion. Cardiac size is normal. Mediastinal contours are normal. There is no evidence for pulmonary edema. IMPRESSION: Linear bibasilar densities which favor atelectasis. No definite consolidation. ACT 112: Negative or not required by law. Electronically signed by: Camilo Taylor M.D. 04/11/2023 8:[address] Soft Tissue Neck CT 04/11/23 07:46 CT soft tissue neck w con CLINICAL HISTORY: fever, R neck/throat pain Technique: Axial CT images of the soft tissues of the neck were obtained following intravenous administration of 100 cc of Omnipaque 300. Automated dose lowering techniques and/or adjustment according to patient size were utilized for this exam. Comparison: None available at the time of this dictation. Findings: There are no masses or inflammatory changes seen within the soft tissues of the neck. The oropharynx, hypopharynx, larynx, and trachea are patent. No enlarged lymph nodes are seen. The parotid glands, submandibular glands, and thyroid gland are unremarkable. Imaged portions of the brain parenchyma are unremarkable. Large mucous retention cyst is seen in the left maxillary sinus. Impression: No acute abnormality is seen. ACT 112: Negative or not required by law. Electronically signed by: Magdaleno Aranda M.D. 04/11/2023 9:13 AM Discharge Plan Visit Data Chief Complaint: Illness Stated Complaint: CHILLS, FATIGUE ED Provider: Abdoul Pisano Discharge Problem: Malaria, Headache, Fever Patient Disposition: Being Evaluated by Hospitalist Forms Stand Alone Forms: My [facility] Prescriptions Prescriptions: No Action losartan 50 mg tablet 50 mg PO QAM Qty: 90 1RF YF-Vax (PF) 10 exp4.74 unit/0.5 mL suspension for reconstitution 0.5 ml subcut ONCE Qty: 1 0RF (DME) blood pressure test kit-large Kit See Rx Instructions .Route Qty: 1 0RF Rx Instructions: As directed amoxicillin 875 mg tablet 875 mg PO BID ibuprofen 600 mg tablet 600 mg PO TID Referrals Referrals: Mak Shaikh DO [Primary Care Provider] -
[2023-04-11 08:27] LABS: Hematocrit (blood only) 38.6 % (42.0-52.0); Hemoglobin 14.6 g/dl (14.0-18.0); Mean Corpuscular Hemoglobin 32.7 pg (25.0-34.0); Mean Corpuscular Hgb Conc 37.8 g/dL (32.0-36.0); Mean Corpuscular Volume 86.5 fL (80.0-100.0); Mean Platelet Volume 11.1 fL (9.4-12.4); Platelet Count 114 K/uL (130-400); RDW Coefficient of Variation 11.6 % (11.5-14.5); Red Blood Count 4.46 M/uL (4.70-6.10); White Blood Count 8.03 K/ul (4.8-10.8)
[2023-04-11 08:37] LABS: Albumin Globulin Ratio 1.3 (0.9-2); Albumin Level 4.1 gm/dl (3.4-5.0); BUN Creatinine Ratio 11.4 (10-20); Bilirubin,Total 4.8 mg/dl (0.2-1.0); Calcium 8.9 mg/dl (8.6-10.3); Creatinine Clr Calc Pharmacy 90.8 ml/min; Est GFR (African American) 85.2 ml/min; Est GFR (Non-African American) 73.5 ml/min; Globulin 3.1 gm/dl (2.5-4.0); Potassium 2.8 mmol/L (3.5-5.1); Total Protein 7.2 gm/dl (6.0-8.3)
[2023-04-11 08:45] LABS: Troponin I High Sensitivity 9.1 pg/ml (0-20)
[2023-04-11] MEDS ORDERED: ONDANSETRON INJ 2 MG/ML 2 ML VIAL IV STA (08:49)
[2023-04-11] MEDS ORDERED: OPTIRAY 320 100ml IV ONE (08:53)
--- NOTE | 2023-04-11 08:54 | XRay Report ---
XR chest 1V portable CLINICAL HISTORY: Fever. COMPARISON STUDY: Chest radiograph and chest CT June 15, 2022. FINDINGS: Lung volumes are normal. Bibasilar opacities are predominantly linear in configuration. The re is no pneumothorax or pleural effusion. Cardiac size is normal. Mediastinal contours are normal. T here is no evidence for pulmonary edema. IMPRESSION: Linear bibasilar densities which favor atelectasis. No definite consolidation. ACT 112: Negative or not required by law. Electronically signed by: Camilo Taylor M.D. 04/11/2023 8:52 AM
[2023-04-11 09:08] LABS: Basophils # (auto) 0.04 K/uL (0-0.2); Basophils % (auto) 0.5 %; Eosinophils # (auto) 0.02 K/uL (0-0.50); Eosinophils % (auto) 0.2 %; Immature Granulocytes # (auto) 0.03 K/uL (0.01-0.20); Immature Granulocytes % (auto) 0.4 %; Lymphocytes # (auto) 0.89 K/uL (1.2-3.4); Lymphocytes % (auto) 11.1 %; Monocytes # (auto) 0.62 K/uL (0.11-0.59); Monocytes % (auto) 7.7 %; Neutrophils # (auto) 6.43 K/uL (1.40-6.50); Neutrophils % (auto) 80.1 %
[2023-04-11 09:08] LABS: Influenza A virus by PCR Negative (Neg); Influenza B virus by PCR Negative (Neg); RSV by PCR Negative (Neg); SARS CoV2 RNA(COVID-19) Ceph NEGATIVE (Negative)
--- NOTE | 2023-04-11 09:15 | CT Scan Report ---
CT soft tissue neck w con CLINICAL HISTORY: fever, R neck/throat pain Technique: Axial CT images of the soft tissues of the neck were obtained following intravenous admini stration of 100 cc of Omnipaque 300. Automated dose lowering techniques and/or adjustment according t o patient size were utilized for this exam. Comparison: None available at the time of this dictation. Findings: There are no masses or inflammatory changes seen within the soft tissues of the neck. The oropharynx, hypopharynx, larynx, and trachea are patent. No enlarged lymph nodes are seen. The parotid glands, s ubmandibular glands, and thyroid gland are unremarkable. Imaged portions of the brain parenchyma are unremarkable. Large mucous retention cyst is seen in the left maxillary sinus. Impression: No acute abnormality is seen. ACT 112: Negative or not required by law. Electronically signed by: Magdaleno Aranda M.D. 04/11/2023 9:13 AM
[2023-04-11 09:21] LABS: Appearance Urine Clear (Clear); Bacteria Urine Automated Negative (Negative); Bilirubin Urine Negative (Negative); Blood Urine 1+ (Negative); Color Urine Orange; Glucose Urine UA Negative (Negative); Ketones Urine Trace (Negative); Leukocyte Esterase Urine Negative (Negative); Nitrite Urine Negative (Negative); Protein Urine 1+ (Negative); Specific Gravity Urine 1.035 (1.000-1.030); Urobilinogen Urine Negative (Negative); pH Urine 6.5 (4.5-7.5)
--- NOTE | 2023-04-11 10:24 | History & Physical Report ---
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 Does report 72-hour cyclical feeling/intensification of symptoms Hemoglobin 14.6 Patient is with mild jaundice. He does not have concurrent transaminitis, suspect hyperbilirubinemia from hemolysis. CMP trending daily. No evidence of concurrent renal dysfunction Ring bodies noted on Anaplasma smear, peripheral smear reordered - 1.0-1.9% parasitemia, suspicious for p. falciparum sp on parasite smear Unknown G6PD history. Patient is of -[place] descent, does not have any family members which have had hemolytic reactions to medications in the past but does not know if anyone has been tested Recently traveled to [facility] with his . Was not on malarial ppx. 8-12% general resistance to chloroquine in [facility] region, ACTs preferred. - Malarone, Quinine/doxy, hydroxychloroquine available on formula at [facility] [place] ID consulted. Recommend Malarone at this time. Initial parasitemia is less than 3%, low suspicion the patient will need a prolonged stay - Scheduled tylenol Q6H for fever, additionally some evidence for renoprotection with p. falciparum infections through mitigation of oxidative pathways. Hold if significant transaminitis observed. [PMID: [id number]] [[email or web address]] [doi:[email or web address]] We will admit given severe symptoms, high fever, tachycardia and tachypnea. No evidence of renal or hepatic dysfunction at time of admission. Labs trended Defer additional steroids Hypertension On losartan monotherapy TARPER We will hold losartan for renal protection in the setting of malaria, will add adjunct amlodipine temporarily. Goal BSG less than 180. May add adjunct labetalol if needed, prefer to avoid hydralazine/nitrates DVT PPx: SCDs Diet: regular Dispo: medTele CODE: Full (2) Hypertension: (3) Hyperbilirubinemia: History of Present Illness Primary Care Provider: DO Ronan Canales is seen in the ER with his present. They were travelling and came back from [facility] on the of this month. Was in [facility] and were hiking in the [facility] [place], also was staying in [facility]. As soon as they got back they went fromno pain and doing well to suddenly 'it hit me so hard' Monday/Monday (3-4 days ago). Went to [place] and tested positive for strep pharyngitis and was placed on Unasyn Fel ta little better initially and then today (72 hours later) felt much worse and came to the ER Did not take any prophylactic medications Had yellow fever vaccination in 2019. +fevers, chills, diffuse body aches. +pharyngitis. +HTN. No other medical hx. Takes losartan for BP, did not take losartan 04/11. Does not know if he or any family members have been tested for G6Pd deficency. No history of drug induced anemia to his knowledge. Pt is of background No known allergies to medications no tobacco or etoh use Had malaria in 2019. Does not recall what he got for treatment. Medical History: Reviewed Medications: Reviewed Surgical History: Reviewed Family history: Reviewed Allergies: Reviewed Social History: No tobacoo/etoh Code Status: Full Allergies Allergy/AdvReac Type Severity Reaction Status Date / Time No Known Allergies Allergy Verified 01/13/23 13:41 Home Medications Medication Instructions Recorded Confirmed Type blood pressure test kit-large #1 ea 07/07/22 01/13/23 Rx losartan 50 mg tablet 50 mg PO QAM #90 tabs 10/21/22 04/11/23 Rx yellow fever vaccine live (PF) 10 0.5 ml subcut ONCE #1 ea 01/13/23 04/11/23 Rx exp4.74 unit/0.5 mL subcutaneous susp (YF-Vax (PF)) amoxicillin 875 mg tablet 875 mg PO BID 04/11/23 04/11/23 History ibuprofen 600 mg tablet 600 mg PO TID 04/11/23 04/11/23 History Past Med/Surg History Medical History (Updated 04/11/23 @ 13:19 by Felicity Mcmillan MD) Acute sinusitis Conjunctivitis Leukocytosis Pharyngitis, acute Surgical History No pertinent past surgical history Family History Other No significant family history Denies family history of Ovarian cancer Prostate cancer Myocardial infarction Breast cancer Colorectal cancer Social History Smoking Status: Never smoker Second Hand Exposure: No; Do You Dip or Chew Tobacco: No; Hx Alcohol Use: No Hx Substance Use: No Preferred Language: Togolese Communication Ability: Effective Visual Impairment: No Limitations Hearing Ability: Normal Emts Required: No Beliefs That Will Affect Care: None marital status: Single Current Living Situation: Alone current occupational status: employed current occupation: [employer] Feels Safe at Home: Yes Childhood Exposure to Second-Hand Smoke: No Diet: regular Dental Care, Regularly: No Physical Activity Frequency: Daily Seatbelt Use: always Sunscreen Use: No Assistive Devices: None Review of Systems Review of Systems: All systems reviewed & are unremarkable except as noted in Subjective Physical Exam Physical Exam: General: A&Ox3. NAD. Cooperative. Skin warm, slightly moist HEENT: Atraumatic, normocephalic. PERLAA. scleral icterus is present Pulm: CTAB A&P. -wheezes, -rales, -rhonchi. Symmetrical chest rise. No increased work of breathing. No respiratory distress. Cardiac: regular, tachycardic, -mrg. Radial pulses intact and symmetrical. Abdominal: Nontender, nondistended, soft. BS present. Ext: moves all extremities equally. sensation/strength grossly intact. Results & Data Results & Data Vital Signs (Past 12 Hours) Vital Signs Temp Pulse Resp BP Pulse Ox O2 Del Method 04/11/23 09:05 114 H 26 H 94 04/11/23 09:05 182/106 H 04/11/23 09:03 113 H 26 H 95 04/11/23 08:30 110 H 39 H 96 04/11/23 08:20 110 H 28 H 97 04/11/23 08:27 113 H 04/11/23 07:32 38.3 C H 124 H 20 164/120 H 95 Room Air PG Care Time/CCT Total # of Minutes Spent Total Time Spent with Patient: Total time spent is greater than 50% in coordination of care (as documented) at patient's floor/unit and/or counseling patient: Coding Level of Care Code 89576 INT INP/OBS CARE 3/75MIN Diagnoses Malaria B54 Hypertension I10 Hyperbilirubinemia E80.6
--- NOTE | 2023-04-11 11:02 | Electrocardiogram Report ---
Test Reason : Blood Pressure : / mmHG Vent. Rate : 109 BPM Atrial Rate : 109 BPM P-R Int : 146 ms QRS Dur : 074 ms QT Int : 290 ms P-R-T Axes : 055 018 -81 degrees QTc Int : 390 ms Sinus tachycardia Abnormal ECG When compared with ECG of 15-JUN-2022 11:33, Inverted T waves have replaced nonspecific T wave abnormality in Lateral leads Confirmed by Jose Hess ([id number]) on 04/11/2023 11:02:36 AM Referred By: REFERRED SELF Confirmed By:Jose Hess
[2023-04-11] MEDS ORDERED: ACETAMINOPHEN 325 MG TAB PO PRN (11:14)
[2023-04-11] MEDS ORDERED: PLASMA-LYTE A 500 ML IV ONE (11:14)
[2023-04-11] MEDS ORDERED: POLYETHYLENE (MIRALAX) 17 GM PACK PO PRN (11:23)
--- NOTE | 2023-04-11 11:43 | Infectious Disease Consult ---
Date of Consultation April 11, 2023 Assessment & Plan (1) Malaria: (2) Fever: (3) Pharyngitis, acute: (4) Thrombocytopenia: Plan 38 yo M with a history of HTN, GERD, hyperbilirubinemia who presented on 04/11 with fevers, chills, myalgias, headache, now admitted with likely malaria. He had recently traveled to [facility] for 1 month, and returned on 03/29. He was not taking malaria prophylaxis. While there, he stayed in an urban area and visited family. He did get some mosquito bites while there. Denies any interaction with animals while there, no swimming or hiking. Denies sick contacts. Since returning from [facility], he has mostly been at home--no hiking or spending time in wooded areas, no known tick bites. Starting on 04/07, he began feeling feverish, chills, myalgias, neck discomfort/stiffness, headache. He presented to an urgent care on 04/09, and had a lot of testing which came back negative. He reports he had a positive strep throat test and was given antibiotics. He thought he may have felt a bit better, but overnight felt worse again. On presentation, pt was febrile to 38.3, tachycardic, hypertensive, with labs showing no leukocytosis, mild anemia with Hct 38.6, thrombocytopenia to 114, Cr 1.23 (close to baseline ~1-1.2), Tbili 4.8, normal transaminases, procalcitonin 0.97. COVID-19/flu/RSV negative. A blood smear showed frequent intracellular red cell ring-like inclusions concerning for Babesia vs Malaria. The smears will be sent to [facility] for further identification. Per my discussion with the pathologist, no "Yasmany crosses" were seen (which are classic in Babesia). Reportedly 1-2% parasitemia. CXR showed likely atelectasis, no definite consolidation. CT neck without contrast was performed due to pt report of R neck/throat pain, which showed no acute abnormality. The only sign of "severe malaria" at this time is the bilirubin >3. Otherwise, no impaired consciousness, seizures, acidosis, hypoglycemia, organ failure, severe anemia, pulmonary edema, bleeding, shock, parasitemia >10%. Pt does have a chronically elevated Tbili, up to 2.9 in May 2022, so the degree of his current Tbili elevation is somewhat difficult to interpret. Micro: 04/11 Anaplasma smear: No evidence of intracytoplasmic neutrophilic inclusions to suggest Anaplasmosis. 04/11 Blood smear: Plasmodium sp / Babesia sp seen, referred to [facility] for identification. 1-1.9% parasitemia. 04/11 BCx x2: pending Abx: Atovaquone/proguanil 04/11 - Unasyn 04/11 - Amoxicillin 04/09 - 04/10 Problems: #Likely malaria (vs Babesia) #Fevers #Thrombocytopenia #Elevated Tbili #Strep throat: reportedly diagnosed at urgent care on 04/09. No pharyngeal erythema on exam Recommendations: -Ordered Babesia PCR -Follow-up blood smear identification -Discussed with inpatient pharmacy. Ideally, would treat malaria with artemesinin-based combination therapy, but this is not available on site. Started atovaquone/proguanil. There are only pediatric 62.5 mg/25 mg tablets available. Will administer 16 of these tablets once daily x 3 days. Inpatient pharmacy will work on ordering adult strength tablets. -Repeat a blood smear daily to confirm declining parasite density (ordered) -Can continue treatment for strep throat diagnosed at urgent care. Hold on further amp-sulbactam. Ordered amoxicillin 500 mg BID to complete 10 day course (04/09 - 04/18) -Would hold off on further steroids Will continue to follow Please page [facility] Center with further questions. Consultation Information Consultation was provided via telemedicine using two-way real-time interactive telecommunication between the patient and the telemedicine provider. For the duration of the visit, the provider was performing the assessment from a different facility than the patient. This includesuse of bluetooth stethoscope forauscultationperformed by the telepresenter that the telemedicine provider can hear if described in the physical exam. Studio Producer contact information: Please call [facility] [phone]. (Phone Number For Physician Use Only) After establishing a telemedicine visit, patient was: Patient was verified with two unique identifiers, Patient/authorized rep acknowledged consent and understanding and Gave permission to continue telehealth session Time Spent with Patient: Initial => 40 min History of Present Illness Reason for Consultation: Malaria Requesting Physician: Dr. Abdoul Pisano Attending Physician: Dr. Darren Marquez History of Present Illness 38 yo M with a history of HTN, GERD who presented on 04/11 with fevers, chills, myalgias, headache. He had recently traveled to [facility] for 1 month, and returned on 03/29. While there, he stayed in an urban area and visited family. He did get some mosquito bites while there. Denies any interaction with animals while there, no swimming or hiking. Denies sick contacts. Since returning from [facility], he has mostly been at home--no hiking or spending time in wooded areas, no known tick bites. Starting on 04/07, he began feeling feverish, chills, myalgias, neck discomfort/stiffness, headache. He presented to an urgent care on 04/09, and had a lot of testing which came back negative. He reports he had a positive strep throat test and was given antibiotics. He thought he may have felt a bit better, but overnight felt worse again. In the ED, pt was febrile to 38.3, HR 110-120s, hypertensive, RR 20s-30s, normal O2 sat. Labs showed WBC 8, Hb 14.6, plt 114, K 2.8, normal lactate 1.5, Tbili 4.8, procalcitonin 0.97, COVID-19/flu/RSV negative. A blood smear showed freq uent intracellular red cell ring-like inclusions concerning for Babesia vs Malaria. The smears will be sent to [facility] for further identification. Per my discussion with the pathologist, no "Yasmany crosses" were seen (which are classic in Babesia). Reportedly 1-2% parasitemia. CXR showed likely atelectasis, no definite consolidation. CT neck without contrast was performed due to pt report of R neck/throat pain, which showed no acute abnormality. Allergies Allergy/AdvReac Type Severity Reaction Status Date / Time No Known Allergies Allergy Verified 01/13/23 13:41 Home Medications Medication Instructions Recorded Confirmed Type blood pressure test kit-large #1 ea 07/07/22 01/13/23 Rx losartan 50 mg tablet 50 mg PO QAM #90 tabs 10/21/22 04/11/23 Rx yellow fever vaccine live (PF) 10 0.5 ml subcut ONCE #1 ea 01/13/23 04/11/23 Rx exp4.74 unit/0.5 mL subcutaneous susp (YF-Vax (PF)) amoxicillin 875 mg tablet 875 mg PO BID 04/11/23 04/11/23 History ibuprofen 600 mg tablet 600 mg PO TID 04/11/23 04/11/23 History Patient History Medical History (Updated 04/11/23 @ 13:19 by Felicity Mcmillan MD) Acute sinusitis Conjunctivitis Leukocytosis Pharyngitis, acute Surgical History No pertinent past surgical history Family History Other No significant family history Denies family history of Ovarian cancer Prostate cancer Myocardial infarction Breast cancer Colorectal cancer Social History Smoking Status: Never smoker Second Hand Exposure: No; Do You Dip or Chew Tobacco: No; Hx Alcohol Use: No Hx Substance Use: No Preferred Language: Angolan Communication Ability: Effective Visual Impairment: No Limitations Hearing Ability: Normal Pilot Supervisor Required: No Beliefs That Will Affect Care: None marital status: Single Current Living Situation: Alone current occupational status: employed current occupation: [employer] Feels Safe at Home: Yes Childhood Exposure to Second-Hand Smoke: No Diet: regular Dental Care, Regularly: No Physical Activity Frequency: Daily Seatbelt Use: always Sunscreen Use: No Assistive Devices: None Review of System A complete ROS was performed and is negative except as mentioned in the HPI. Physical Exam Physical Exam: GEN: laying in bed in NAD. HEENT: NCAT, no conjunctival injection. No oropharyngeal lesions or exudates. Full neck ROM although with some discomfort RESP: No increased work of breathing ABD: Soft, non-distended. Non-tender to palpation. EXT: No LE edema. Warm, well-perfused. SKIN: No lesions or rashes on exposed skin. NEURO: Alert and oriented. Answers all questions appropriately. Speech not slurred. PSYCH: Normal mood, affect appropriate. Results & Data Vital Signs (Past 12 Hours) Vital Signs Temp Pulse Resp BP Pulse Ox O2 Del Method 04/11/23 11:00 112 H 31 H 95 04/11/23 10:30 113 H 29 H 96 04/11/23 10:00 119 H 42 H 93 04/11/23 10:00 181/109 H 04/11/23 09:30 114 H 26 H 95 04/11/23 09:05 114 H 26 H 94 04/11/23 09:05 182/106 H 04/11/23 09:03 113 H 26 H 95 04/11/23 08:30 110 H 39 H 96 04/11/23 08:20 110 H 28 H 97 04/11/23 08:27 113 H 04/11/23 07:32 38.3 C H 124 H 20 164/120 H 95 Room Air Laboratory Results Short CBC 04/11/23 Range/Units 07:38 WBC 8.03 (4.8-10.8) K/ul Hgb 14.6 (14.0-18.0) g/dl Hct 38.6 L (42.0-52.0) % Plt Count 114 L (130-400) K/uL BMP 04/11/23 07:38 Sodium 137 Potassium 2.8 L Chloride 103 Carbon Dioxide 27 BUN 14 Creatinine 1.23 Glucose 137 H Calcium 8.9 Liver Function 04/11/23 Range/Units 07:38 Total Bilirubin 4.8 H (0.2-1.0) mg/dl AST 24 (13-39) U/L ALT 20 (7-52) U/L Alkaline Phosphatase 78 (34-104) U/L Albumin 4.1 (3.4-5.0) gm/dl Urine 04/11/23 Range/Units 09:04 Urine Color Red [place]ow Urine Appearance Clear (Clear) Urine pH 6.5 (4.5-7.5) Ur Specific [place] 1.035 H (1.000-1.030) Urine Protein 1+ H (Negative) Urine Glucose (UA) Negative (Negative) Diagnostic Findings Chest X-Ray 04/11/23 07:38 XR chest 1V portable CLINICAL HISTORY: Fever. COMPARISON STUDY: Chest radiograph and chest CT June 15, 2022. FINDINGS: Lung volumes are normal. Bibasilar opacities are predominantly linear in configuration. There is no pneumothorax or pleural effusion. Cardiac size is normal. Mediastinal contours are normal. There is no evidence for pulmonary edema. IMPRESSION: Linear bibasilar densities which favor atelectasis. No definite consolidation. ACT 112: Negative or not required by law. Electronically signed by: Camilo Taylor M.D. 04/11/2023 8:52 AM Soft Tissue Neck CT 04/11/23 07:46 CT soft tissue neck w con CLINICAL HISTORY: fever, R neck/throat pain Technique: Axial CT images of the soft tissues of the neck were obtained following intravenous administration of 100 cc of Omnipaque 300. Automated dose lowering techniques and/or adjustment according to patient size were utilized for this exam. Comparison: None available at the time of this dictation. Findings: There are no masses or inflammatory changes seen within the soft tissues of the neck. The oropharynx, hypopharynx, larynx, and trachea are patent. No enlarged lymph nodes are seen. The parotid glands, submandibular glands, and thyroid gland are unremarkable. Imaged portions of the brain parenchyma are unremarkable. Large mucous retention cyst is seen in the left maxillary sinus. Impression: No acute abnormality is seen. ACT 112: Negative or not required by law. Electronically signed by: Magdaleno Aranda M.D. 04/11/2023 9:13 AM Medications Administered Current Inpatient Medications Acetaminophen (Acetaminophen 325 Mg Tab) 650 mg PO Q6H RANDEE Stop: 05/11/23 11:18 Last Admin: 04/11/23 12:42 Dose: 650 mg Atovaquone/Proguanil (Atovaquone/Proguanil Hcl 62.5mg/25mg Tab) 16 tab PO DAILY RANDEE Stop: 04/13/23 09:01 Last Admin: 04/11/23 12:42 Dose: 16 tab Polyethylene Glycol (Polyethylene (Miralax) 17 Gm Pack) 17 gm PO DAILY PRN PRN Reason: Constipation Stop: 05/11/23 11:22
[2023-04-11] MEDS: ATOVAQUONE PO SCH (12:42)
[2023-04-11] MEDS: ACETAMINOPHEN 325 MG TAB PO SCH ×3 (12:42→22:28)
[2023-04-11] MEDS: PROGUANIL HCL PO SCH (12:42)
[2023-04-11] MEDS ORDERED: amLODIPine BESYLATE 5 MG TAB PO ONE (15:20)
[2023-04-11] MEDS ORDERED: POTASSIUM CHLORIDE CRTAB 20 MEQ TABCR PO STA (15:33)
[2023-04-11] MEDS: POTASSIUM CHLORIDE / WTR 10 MEQ/100 ML PLCT IV SCH ×3 (16:06→19:32)
[2023-04-11] MEDS ORDERED: AMOXICILLIN 875 MG TAB PO SCH ×2 (17:00)
[2023-04-11 17:42] LABS: BUN Creatinine Ratio 13.3 (10-20); Calcium 8.9 mg/dl (8.6-10.3); Creatinine Clr Calc Pharmacy 116.2 ml/min; Est GFR (African American) 103.1 ml/min
[2023-04-11] MEDS: POTASSIUM CHLORIDE CRTAB 20 MEQ TABCR PO SCH ×2 (19:31→20:28)
[2023-04-11] MEDS: BENZONATATE 100 MG CAPSULE PO PRN (22:28)
[2023-04-12] MEDS: ACETAMINOPHEN 325 MG TAB PO SCH ×3 (06:03→15:50)
[2023-04-12] MEDS: BENZONATATE 100 MG CAPSULE PO PRN ×2 (06:04→15:58)
[2023-04-12 06:22] LABS: Albumin Globulin Ratio 1.1 (0.9-2); Albumin Level 3.6 gm/dl (3.4-5.0); BUN Creatinine Ratio 13.1 (10-20); Bilirubin,Total 3.3 mg/dl (0.2-1.0); Calcium 8.6 mg/dl (8.6-10.3); Creatinine Clr Calc Pharmacy 123.3 ml/min; Est GFR (African American) 110.7 ml/min; Est GFR (Non-African American) 95.5 ml/min; Globulin 3.3 gm/dl (2.5-4.0); Potassium 3.3 mmol/L (3.5-5.1); Total Protein 6.9 gm/dl (6.0-8.3)
[2023-04-12 07:44] LABS: Basophils # (auto) 0.03 K/uL (0-0.2); Basophils % (auto) 0.2 %; Hematocrit (blood only) 34.6 % (42.0-52.0); Hemoglobin 13.4 g/dl (14.0-18.0); Immature Granulocytes % (auto) 0.8 %; Lymphocytes # (auto) 1.77 K/uL (1.2-3.4); Mean Corpuscular Hgb Conc 38.7 g/dL (32.0-36.0); Mean Corpuscular Volume 85.2 fL (80.0-100.0); Mean Platelet Volume 11.5 fL (9.4-12.4); Monocytes # (auto) 1.24 K/uL (0.11-0.59); Monocytes % (auto) 9.8 %; Neutrophils # (auto) 9.52 K/uL (1.40-6.50); Neutrophils % (auto) 75.2 %; Platelet Count 129 K/uL (130-400); RDW Coefficient of Variation 11.4 % (11.5-14.5); RDW Standard Deviation 35.4 fL (36.4-46.3); Red Blood Count 4.06 M/uL (4.70-6.10); White Blood Count 12.66 K/ul (4.8-10.8)
[2023-04-12] MEDS ORDERED: AMOXICILLIN 875 MG TAB PO SCH ×2 (08:00)
--- NOTE | 2023-04-12 08:00 | Hospitalist Progress Note ---
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 Does report 72-hour cyclical feeling/intensification of symptoms Hemoglobin 14.6 Patient is with mild jaundice. He does not have concurrent transaminitis, suspect hyperbilirubinemia from hemolysis. CMP trending daily. No evidence of concurrent renal dysfunction Ring bodies noted on Anaplasma smear, peripheral smear reordered - 1.0-1.9% parasitemia, suspicious for p. falciparum sp on parasite smear Unknown G6PD history. Patient is of -[place] descent, does not have any family members which have had hemolytic reactions to medications in the past but does not know if anyone has been tested Recently traveled to [facility] with his . Was not on malarial ppx. 8-12% general resistance to chloroquine in [facility] region, ACTs preferred. - Malarone, Quinine/doxy, hydroxychloroquine [place] [facility]. Recommend Malarone at this time. Initial parasitemia is less than 3%, low suspicion the patient will need a prolonged stay - Scheduled tylenol Q6H for fever, additionally some evidence for renoprotection with p. falciparum infections through mitigation of oxidative pathways. Hold if significant transaminitis observed. [PMID: [id number]] [[email or web address]] [doi:[email or web address]/fp.0355] We will admit given severe symptoms, high fever, tachycardia and tachypnea. No evidence of renal or hepatic dysfunction at time of admission. 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 Goal BSG less than 180. May add adjunct labetalol if needed, prefer to avoid hydralazine/nitrates DVT PPx: SCDs Diet: regular Dispo: medTele CODE: Full (2) Hypertension: (3) Hyperbilirubinemia: Admission and Anticipated Discharge Date Admission Date: April 11, 2023 Review of Systems Review of Systems: All systems reviewed & are unremarkable except as noted in HPI & below Physical Exam Physical Exam: General: Grossly A&O. NAD. Cooperative. HEENT: Atraumatic, normocephalic. Pulm: CTAB. -wheezes, -rales, -rhonchi. No accessory muscle use. Cardiac: RRR, -mrg. Abdominal: Nontender, nondistended, soft. Results & Data Results & Data Vital Signs (Past 12 Hours) Vital Signs Temp Pulse Resp BP Pulse Ox O2 Del Method 04/12/23 07:42 36.9 C 101 H 18 152/100 H 96 Room Air 04/12/23 03:05 36.8 C 97 H 18 165/107 H 94 Room Air 04/11/23 23:04 37.1 C 103 H 18 173/103 H 96 Room Air Resident Activity Tracking Resident Involvement: Resident Care Provided Care Provided: Adult Hospital Medicine
[2023-04-12] MEDS: POTASSIUM CHLORIDE CRTAB 20 MEQ TABCR PO SCH (08:01)
[2023-04-12] MEDS: AMOXICILLIN 500 MG CAP PO SCH ×2 (08:02→15:49)
[2023-04-12 08:16] LABS: Parasites Present
[2023-04-12] MEDS: ATOVAQUONE PO SCH (08:34)
[2023-04-12] MEDS: PROGUANIL HCL PO SCH (08:34)
[2023-04-12 10:04] LABS: Parasites Present; Polychromasia 1+; Target Cells 1+
--- NOTE | 2023-04-12 11:01 | Hospitalist Progress Note ---
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 Does report 72-hour cyclical feeling/intensification of symptoms. Hgb 14.6 > 13.6 >13.4 Patient is with mild jaundice. He does not have concurrent transaminitis, suspect hyperbilirubinemia from hemolysis. CMP trending daily. No evidence of concurrent renal dysfunction Ring bodies noted on Anaplasma smear, peripheral smear reordered. Recently traveled to [facility] with his . Was not on malarial ppx. 8-12% general resistance to chloroquine in [place] region, ACTs preferred. - 1.0-1.9% parasitemia, suspicious for p. falciparum sp on parasite smear Unknown G6PD history. Patient is of -[place] descent, does not have any family members which have had hemolytic reactions to medications in the past but does not know if anyone has been tested ID consulted. Recommend Malarone at this time. Initial parasitemia is less than 3%, low suspicion the patient will need a prolonged stay - Scheduled tylenol Q6H for fever, additionally some evidence for renoprotection with p. falciparum infections through mitigation of oxidative pathways. Hold if significant transaminitis observed. [PMID: 25490140] [[email or web address].org/10.1093/portillo/ukpb752] [doi:[email or web address]/fp.[email or web address]] Defer additional steroids Should be ready for d/c today. Hypertension Today, 152/100. 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 Goal BSG less than 180. May add adjunct labetalol if needed, prefer to avoid hydralazine/nitrates DVT PPx: SCDs Diet: regular Dispo: medTele CODE: Full (2) Hypertension: (3) Hyperbilirubinemia: Admission and Anticipated Discharge Date Admission Date: April 11, 2023 Subjective No acute events overnight. Ronan is doing well today. Denies fever, chest pain, abd pain, myalgias, or headaches today. He has some back pain. He is looking towards going home iman. Review of Systems 2 Constitutional: Denied fever, night sweats, fatigue, weakness, dizziness Respiratory: Denied cough or shortness of breath. Cardiovascular: Additional Comments: Denied chest pain, palpitations Gastrointestinal: Denied nausea, vomiting, diarrhea, abdominal pain. Genitourinary: no dysuria, no difficulty urinating or no urinary frequency Physical Exam Constitutional: Alert and oriented x3 in hopsital bed Eyes: Pupils were equal, normal shape. Mild Jaundice Neck: Respiratory: CTA, no increased work of breathing Cardiovascular: Normal rate and regular rhythm. S1 S2 no r/m/g. Radial pulses equal b/l. Gastrointestinal (Abdomen): Nondistended, nontender, normoactive bowel sounds. Musculoskeletal: Moves all extremities independently Skin: Warm dry, no apparent rashed. Psychiatric: Appropriate mood and affect. Lymphatic: No lymphadenopathy in the neck and cervical region. Results & Data Results & Data Vital Signs (Past 12 Hours) Vital Signs Temp Pulse Resp BP Pulse Ox O2 Del Method 04/12/23 07:42 36.9 C 101 H 18 152/100 H 96 Room Air 04/12/23 03:05 36.8 C 97 H 18 165/107 H 94 Room Air 04/11/23 23:04 37.1 C 103 H 18 173/103 H 96 Room Air Laboratory Results 04/12/23 05:40 04/12/23 05:40
[2023-04-12] MEDS ORDERED: LOSARTAN POTASSIUM 50 MG TAB PO STA (11:17)
[2023-04-12] MEDS ORDERED: AZITHROMYCIN 250 MG TAB PO ONE (11:58)
--- NOTE | 2023-04-12 12:48 | Infectious Disease Progress Nt ---
Date of Service April 12, 2023 Assessment & Plan (1) Malaria: (2) Fever: (3) Pharyngitis, acute: (4) Thrombocytopenia: Plan 38 yo M with a history of HTN, GERD, hyperbilirubinemia who presented on 04/11 with fevers, chills, myalgias, headache, now admitted with likely malaria. He had recently traveled to [facility] for 1 month, and returned on 03/29. He was not taking malaria prophylaxis. While there, he stayed in an urban area and visited family. He did get some mosquito bites while there. Denies any interaction with animals while there, no swimming or hiking. Denies sick contacts. Since returning from [facility], he has mostly been at home--no hiking or spending time in wooded areas, no known tick bites. Starting on 04/07, he began feeling feverish, chills, myalgias, neck discomfort/stiffness, headache. He presented to an urgent care on 04/09, and had a lot of testing which came back negative. He reports he had a positive strep throat test and was given antibiotics. He thought he may have felt a bit better, but overnight felt worse again. On presentation, pt was febrile to 38.3, tachycardic, hypertensive, with labs showing no leukocytosis, mild anemia with Hct 38.6, thrombocytopenia to 114, Cr 1.23 (close to baseline ~1-1.2), Tbili 4.8, normal transaminases, procalcitonin 0.97. COVID-19/flu/RSV negative. A blood smear showed frequent intracellular red cell ring-like inclusions concerning for Babesia vs Malaria. The smears will be sent to [facility] for further identification. Per my discussion with the pathologist, no "Luxembourgish crosses" were seen (which are classic in Babesia). Reportedly 1-2% parasitemia. CXR showed likely atelectasis, no definite consolidation. CT neck without contrast was performed due to pt report of R neck/throat pain, which showed no acute abnormality. The only sign of "severe malaria" at this time is the bilirubin >3. Otherwise, no impaired consciousness, seizures, acidosis, hypoglycemia, organ failure, severe anemia, pulmonary edema, bleeding, shock, parasitemia >10%. Pt does have a chronically elevated Tbili, up to 2.9 in May 2022, so the degree of his current Tbili elevation is somewhat difficult to interpret. Pt feeling much improved on 04/12. Tbili has downtrended to 3.3, and Hb slightly decreased to 13.4. Micro: 04/11 Anaplasma smear: No evidence of intracytoplasmic neutrophilic inclusions to suggest Anaplasmosis. 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 1-1.9% parasitemia. 04/11 BCx x2: pNGTD Abx: Atovaquone/proguanil 04/11 - Unasyn 04/11 Amoxicillin 04/09 - 04/10, 04/11 - Problems: #Likely malaria (vs Babesia) #Fevers #Thrombocytopenia: improving #Elevated Tbili: downtrending #Strep throat: reportedly diagnosed at urgent care on 04/09. No pharyngeal erythema on exam Recommendations: -Follow-up Babesia PCR -Follow-up blood smear identification -No artemesinin-based combination therapy available on site. Continue atovaquone/proguanil. There are only pediatric 62.5 mg/25 mg tablets available on site. Will administer 16 of the pediatric tablets once daily x 3 days (04/11 - 04/13) -For strep throat, continue amoxicillin 500 mg BID to complete 10 day course (04/09 - 04/18) Please page [facility] Center with further questions. Admission and Anticipated Discharge Date Admission Date: April 11, 2023 Subjective This patient recommendation is based on a telemedicine consult request which was completed asynchronously through chart review and information provided by the primary physician. The patient was not seen or examined today. The evaluation is consultative in nature and all patient care and treatment decisions can either be accepted or rejected by the patient's primary hospital-based treating physician using their own independent medical judgment for their patient. Time Spent Reviewing Chart: 21 - 30 minutes pt reportedly feeling much better WBC up to 12.66 Hb decreased to 13.4 Tbili 4.8 --> 3.3 Pt would like to discharge Review of System pt not seen Physical Exam Physical Exam: pt not seen Results & Data Vital Signs (Past 12 Hours) Vital Signs Temp Pulse Resp BP Pulse Ox O2 Del Method 04/12/23 12:18 37.0 C 89 18 157/108 H 97 Room Air 04/12/23 07:42 36.9 C 101 H 18 152/100 H 96 Room Air 04/12/23 03:05 36.8 C 97 H 18 165/107 H 94 Room Air Laboratory Results Short CBC 04/12/23 Range/Units 05:40 WBC 12.66 H (4.8-10.8) K/ul Hgb 13.4 L (14.0-18.0) g/dl Hct 34.6 L (42.0-52.0) % Plt Count 129 L (130-400) K/uL BMP 04/11/23 04/12/23 16:55 05:40 Sodium 136 137 Potassium 3.0 L 3.3 L Chloride 104 105 Carbon Dioxide 25 24 BUN 14 13 Creatinine 1.05 0.99 Glucose 148 H 132 H Calcium 8.9 8.6 Liver Function 04/12/23 Range/Units 05:40 Total Bilirubin 3.3 H (0.2-1.0) mg/dl AST 19 (13-39) U/L ALT 16 (7-52) U/L Alkaline Phosphatase 63 (34-104) U/L Albumin 3.6 (3.4-5.0) gm/dl Medications Administered Current Inpatient Medications Acetaminophen (Acetaminophen 325 Mg Tab) 650 mg PO Q6H [facility] Stop: 05/11/23 11:18 Last Admin: 04/12/23 12:29 Dose: 650 mg Amoxicillin (Amoxicillin 500 Mg Cap) 500 mg PO BIDM [facility]ANDEE Stop: 04/18/23 07:59 Last Admin: 04/12/23 08:02 Dose: 500 mg Atovaquone/Proguanil (Atovaquone/Proguanil Hcl 62.5mg/25mg Tab) 16 tab PO DAILY RANDEE Stop: 04/13/23 09:01 Last Admin: 04/12/23 08:34 Dose: 16 tab Benzonatate (Benzonatate 100 Mg Capsule) 200 mg PO TID PRN PRN Reason: Cough Stop: 05/12/23 08:59 Last Admin: 04/12/23 06:04 Dose: 200 mg Losartan Potassium (Losartan Potassium 50 Mg Tab) 50 mg PO QAM [facility] Stop: 05/13/23 08:59 Polyethylene Glycol (Polyethylene (Miralax) 17 Gm Pack) 17 gm PO DAILY PRN PRN Reason: Constipation Stop: 05/11/23 11:22 Potassium Chloride (Potassium Chloride Crtab 20 Meq Tabcr) 20 meq PO BID RANDEE Stop: 05/11/23 17:59 Last Admin: 04/12/23 08:01 Dose: 20 meq
--- NOTE | 2023-04-12 12:57 | Electrocardiogram Report ---
Test Reason : Blood Pressure : / mmHG Vent. Rate : 098 BPM Atrial Rate : 098 BPM P-R Int : 154 ms QRS Dur : 076 ms QT Int : 332 ms P-R-T Axes : 029 044 -16 degrees QTc Int : 423 ms Normal sinus rhythm Abnormal QRS-T angle, consider primary T wave abnormality Abnormal ECG When compared with ECG of 11-APR-2023 07:55, ST no longer depressed in Inferior leads T wave inversion no longer evident in Lateral leads Confirmed by Ross Mora ([id number]) on 04/12/2023 12:56:36 PM Referred By: REFERRED SELF Confirmed By:Ross Mora
--- NOTE | 2023-04-12 15:08 | Discharge Summary ---
Date of Service April 12, 2023 Admission HPI Per Admitting Provider Ronan is seen in the ER with his present. They were travelling and came back from [facility] on the of this month. Was in [facility] region and were hiking in the [facility] regions, also was staying in [facility]. As soon as they got back they went fromno pain and doing well to suddenly 'it hit me so hard' Monday/Monday (3-4 days ago). Went to [facility] and tested positive for strep pharyngitis and was placed on Unasyn Fel ta little better initially and then today (72 hours later) felt much worse and came to the ER Did not take any prophylactic medications Had yellow fever vaccination in 2019. +fevers, chills, diffuse body aches. +pharyngitis. +HTN. No other medical hx. Takes losartan for BP, did not take losartan 04/11. Does not know if he or any family members have been tested for G6Pd deficency. No history of drug induced anemia to his knowledge. Pt is of background No known allergies to medications no tobacco or etoh use Had malaria in 2019. Does not recall what he got for treatment. Medical History: Reviewed Medications: Reviewed Surgical History: Reviewed Family history: Reviewed Allergies: Reviewed Social History: No tobacoo/etoh Code Status: Full Admission Exam Per Admitting Provider General: A&Ox3. NAD. Cooperative. Skin warm, slightly moist HEENT: Atraumatic, normocephalic. PERLAA. scleral icterus is present Pulm: CTAB A&P. -wheezes, -rales, -rhonchi. Symmetrical chest rise. No increased work of breathing. No respiratory distress. Cardiac: regular, tachycardic, -mrg. Radial pulses intact and symmetrical. Abdominal: Nontender, nondistended, soft. BS present. Ext: moves all extremities equally. sensation/strength grossly intact. Principal Diagnosis Babesiosis vs Malaria Discharge Exam Constitutional AOx3, in no acute distress, denies fevers, night chills, Eyes Mild jaundice Respiratory CTA, no labored breathing Cardiovascular Normal rate, regular rhythm, S1 S2 no r/m/g Gastrointestinal (Abdomen) nd/nt/normoactive bs Musculoskeletal Moves all extremteis independently Psychiatric appropriate mood and affect Discharge Data Allergies Allergy/AdvReac Type Severity Reaction Status Date / Time No Known Allergies Allergy Verified 01/13/23 13:41 Consultations 04/11/23 10:26 ED Decision to Admit Stat 04/11/23 11:11 Consult Infectious Diseases Routine Ordered Studies 04/11/23 07:46 CT neck soft tissues [CT soft tissue neck w con] Stat Hospital Course (1) Malaria: Patient presented with fever, chills, myalgias, headache following a trip from [facility] on the of this month and did not take any prophylactic medications. On 04/08, he felt an increase in symptom [facility] and [facility] positive for strep pharyngitis and was placed on Unasyn, felt a little better and then 72 hours later had an increase in symptoms again. At admission, febrile and Hgb of 14.6, ring bodies noted on Anaplasma smear, peripheral smear reordered. No evidence of renal or hepatic dysfunction at time of admission. Malaria, suspected P. falciparum vs Babesia, smear pending. Malarone was given on day one and two of hospital stay. Will continue the final dose of Malarone for malaria treatment day after discharge (April 13 2023), while also starting the babesia treatment with azithromyacin and atovaquon alone (April 18 2023 last day). Patient will continue Babesia treatment and Malaria treatment outpatient. Pending the results of Babesia testing, can discontinue the additional treatment. Patient was Full Code throughout admission. (2) Hypertension: Resume home losartan. (3) Hyperbilirubinemia: No treatment required. (4) Strep throat: Amoxicillin treatment was continued throughout hospital stay. Plan Total Time Total Time Spent Total Time Spent (In Minutes): See attending attestation. Discharge Plan Discharge Items Patient Disposition: Home - Self-Care Reason For Visit: ACUTE MALARIA, P. FALCIPARUM Discharge Diagnosis: acute malaria Activity: Per Instructions section Bathing: May shower/bathe in 3 days Non-emergency contact: Primary Care Provider Call non-emergency contact if: you have any medication questions, your symptoms worsen and you have a fever Follow-up/Referrals: Mak Shaikh, [Primary Care Provider] - (hospital discharge follow up within 1 week of leaving the hospital) Diet: Regular Addtl Attending Provider Instructions: You were admitted to the hospital for malaria. There was evidence of malaria versus Babesia on the microscope study of your blood cells. You will be treated for both conditions while awaiting the lab studies. If the lab study results and shows malaria (not babesia), then you would want to stop the atovaquone and azithromycin early. Please follow up with your PCP within 1 week of leaving the hospital. While you were in the hospital you received a treatment for low potassium, nausea, cough, constipation, pain, strep infection, and malaria/Babesia. In addition, you were provided fluids through an IV and continuous cardiac monitoring. For your information only: The treatment of malaria is atovaquone-proguanil 4 tablets (4*250mg) daily for 3 days total. You have received 2 doses of this. The treatment of Babesia is azithromycin (500mg on day 1, 250mg on subsequent days) PLUS atovaquone 750mg every 12 hours for 7 days total. Actual medication directions: These medications will be sent to [facility] for picking on 04/07/23. Ignore the dates on the prescriptions and refer to the schedule below. 04/13 morning: take the 4 tablets of atovaquone-proguanil. 04/13 evening: take 500mg of the atovaquone syrup 04/14 and after: Take the atovaquone syrup 750mg twice a day for 6.5 days (13 doses). The syrup comes in 750mg/5mL, so dose accordingly. azithromycin: Take 250mg tablet every morning starting 04/13 for 6 days. Please continue the antibiotic amoxicillin 500mg twice a day, last dose will be evening of 04/18/23. Replace your toothbrush upon returning home. Please visit the ED or call your PCP if any new or worsened symptoms. Pending Studies at Discharge: No Stand-Alone Forms: [facility] Oximity, Smoking Cessation Medications and DC Order Prescriptions: New atovaquone 750 mg/5 mL suspension 750 mg PO BID 7 Days Qty: 70 0RF Rx Instructions: must administer with food, preferably a high-fat meal. covering for babesia per positive smear atovaquone-proguanil [Malarone] 250-100 mg tablet 4 tab PO ONCE 1 Days Qty: 4 0RF Rx Instructions: 4 tabs orally once; completed 2/3 days of malaria treatment. smear showed malaria vs babesia amoxicillin 500 mg Capsule 500 mg PO BIDM 6 Days Qty: 12 0RF Continued losartan 50 mg tablet 50 mg PO QAM Qty: 90 1RF YF-Vax (PF) 10 exp4.74 unit/0.5 mL suspension for reconstitution 0.5 ml subcut ONCE Qty: 1 0RF (DME) blood pressure test kit-large Kit See Rx Instructions .Route Qty: 1 0RF Rx Instructions: As directed ibuprofen 600 mg tablet 600 mg PO TID Discontinued amoxicillin 875 mg tablet 875 mg PO BID Discharge Orders: Discharge Order (Routine); Ordered 04/12/23 Ordered By: Ross Elam Admission Data Admit Date/Time: 04/11/23 11:25 Attending Provider: Sheryl De La Paz Admit Provider: Darren Marquez Primary Care Provider: Mak Shaikh Other Providers: Darren Marquez ; Danielle Bueno ; Michael Irvin ; Felicity Mcmillan ; Víctor Luis ; Sho Banks ; Adriana Marina ; Sanjuana Hernandez ; Julian Conrad ; Bisi Mkcee Other Interventions: Discharge Summary Assessment (RN) Last Done: 04/12/23 17:40 Supervising Physician Co-Signing Physician Notes Medical Student Supervision Note: I was personally present during medical student patient encounter and independently interviewed and examined the patient and verified the snow history and physical, reviewed labs and image studies, discussed the case with Leah Alejandra and agree with the findings and care plan. Parasitic infection - malaria vs babesis as per peripheral smear results. slides sent to [facility] for final identification. --started on Malarone and received one dose 500mgs azithromycin. home to finish malaria course and continue azithromycin and atovaquone (malarone) to finish babesia treatment.
[2023-04-13] MEDS ORDERED: LOSARTAN POTASSIUM 50 MG TAB PO SCH (09:00)
[2023-04-14 05:47] LABS: Babesia microti DNA Not Detected (Not Detected)
== END 2023-04-12 18:09 | disposition home or self-care (01) | DRG 869 ==
LOC: ED 07:30 → 4W 11:25 → SUATTDRO 11:25 → 4W 14:27